=== PATIENT | male | born 1950 | race Caucasian/White ===

== ENCOUNTER 2023-05-04 14:47 | Observation (INO) | payer MEDICARE ==
[~2023-05-04] VITALS: Ht 182.9 cm; Wt 79.7 kg
[~2023-05-04 14:47] MED LIST: ALLP100T; DIAZ-345; HYDR1TAB; NAPR250T34; SERT25TA
[2023-05-04] MEDS ORDERED: NS IV 1000 ML 1,000 ML IV STA (15:12)
--- NOTE | 2023-05-04 15:15 | ED Cough/URI ---
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 Symptoms started about 8 days ago. Reports body aches chills weakness fatigue. Has not been able to eat as much. Has been vomiting nearly every day except today. Patient reports 1 loose stool. Reports a mild wet productive cough without any shortness of breath at this time. Did have shortness of breath earlier this week with a cough. Concern for pneumonia. Was seen at a local clinic sent to the ED secondary to elevated blood pressure. Has not been able to take his verapamil and clonidine secondary to the vomiting. Does have a history of gout and RA which he has not been able to take his medication for as well. Does report joint pain but states this is fairly chronic. Denies history of coronary artery disease, CHF, COPD or asthma. Denies any recent travels or surgeries. Denies of any known fever rash sore throat ear pain, pain with urina tion current abdominal pain. Allergies and Home Medications Allergies Coded Allergies: No Known Allergies (Unverified Allergy, Mild, 06/10/09) Patient Home Medication List Home Medication List Reviewed: Yes Allopurinol (Zyloprim) 100 Mg Tab, (Reported) Entered as Reported by: JASIEL ACOTSA on 06/10/09609 Diazepam (Valium 5 Mg Tab) 5 Mg Tablet, (Reported) Entered as Reported by: JASIEL ACOSTA on 06/10/09608 Hydrocodone Bit/Acetaminophen (Vicodin 5-500 Tablet) 1 Each Tablet, (Reported) Entered as Reported by: JASIEL ACOSTA on 06/10/09606 Naproxen (Naprosyn) 250 Mg Tablet, (Reported) Entered as Reported by: JASIEL ACOSTA on 06/10/09608 Sertraline Hcl (Zoloft) 25 Mg Tablet, (Reported) Entered as Reported by: JASIEL ACOSTA on 06/10/09 0608 Review of Systems Review of Systems Constitutional: chills; No diaphoresis; malaise, weakness EENTM: No ear pain, No blurred vision, No double vision Respiratory: cough; No short of breath Cardiovascular: No chest pain Gastrointestinal: No abdominal pain, No diarrhea; nausea, vomiting Genitourinary: No decreased output, No discharge, No dysuria, No frequency Musculoskeletal: No back pain, No joint pain Skin: No change in color, No change in hair/nails All Other Systems Reviewed Negative Unless Noted: Yes Past Bfwbxvy-Odmvxd-Ftavuy Hx Past Medical History Reproductive Disorders: No Physical Exam Vital Signs - First Documented 05/04/23 15:06 Temp 37.1 Pulse 95 Resp 20 B/P (MAP) 166/120 (135) Pulse Ox 99 O2 Delivery Room Air Capillary Refill : Less Than 3 Seconds Height: '" Weight: lbs. oz. kg; 21.00 BMI Method: General Appearance: WD/WN, no apparent distress Eyes: Bilateral Eye Normal Inspection, Bilateral Eye PERRL, Bilateral Eye EOMI HEENT: PERRL/EOMI, normal ENT inspection, TMs normal, pharynx normal Neck: non-tender, full range of motion Respiratory: chest non-tender, normal breath sounds, no respiratory distress, no accessory muscle use, wheezing (Right-sided lower lung) Cardiovascular: regular rate, rhythm, no edema, no gallop, no JVD Gastrointestinal: normal bowel sounds, non tender, soft Extremities: normal range of motion, non-tender, no pedal edema, other (Left posterior elbow tenderness with bursitis) Neurologic/Psychiatric: 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 as tested, no motor/sensory deficits, alert, oriented x 3 Skin: normal color, warm/dry Focused Exam Lactate Level 05/04/23 16:50: Lactic Acid Level 0.96 Lactic Acid Level Laboratory Tests Test 05/04/23 16:50 Lactic Acid Level 0.96 MMOL/L (0.50-2.00) Progress/Results/Core Measures Suspected Sepsis SIRS Temperature: Pulse: 95 Respiratory Rate: 20 Laboratory Tests 05/04/23 15:15: White Blood Count 12.5H Blood Pressure 166 /120 Mean: 135 05/04/23 16:50: Lactic Acid Level 0.96 Laboratory Tests 05/04/23 15:15: Creatinine 2.89H, Platelet Count 109L, Total Bilirubin 2.3H Results/Orders Lab Results Laboratory Tests Test 05/04/23 15:10 05/04/23 15:15 05/04/23 16:50 Range/Units Influenza Type A (RT-PCR) Not Detected Not Detecte Influenza Type B (RT-PCR) Not Detected Not Detecte SARS-CoV-2 RNA (RT-PCR) Not Detected Not Detecte White Blood Count 12.5 H 4.3-11.0 10^3/uL Red Blood Count 4.90 4.30-5.52 10^6/uL Hemoglobin 15.1 13.3-17.7 g/dL Hematocrit 43 40-54 % Mean Corpuscular Volume 88 80-99 fL Mean Corpuscular Hemoglobin 31 25-34 pg Mean Corpuscular Hemoglobin Concent 35 32-36 g/dL Red Cell Distribution Width 14.7 H 10.0-14.5 % Platelet Count 109 L 130-400 10^3/uL Mean Platelet Volume 10.8 9.0-12.2 fL Immature Granulocyte % (Auto) 0 % Neutrophils (%) (Auto) 81 H 42-75 % Lymphocytes (%) (Auto) 13 12-44 % Monocytes (%) (Auto) 7 0-12 % Eosinophils (%) (Auto) 0 0-10 % Basophils (%) (Auto) 0 0-10 % Neutrophils # (Auto) 10.1 H 1.8-7.8 10^3/uL Lymphocytes # (Auto) 1.6 1.0-4.0 10^3/uL Monocytes # (Auto) 0.8 0.0-1.0 10^3/uL Eosinophils # (Auto) 0.0 0.0-0.3 10^3/uL Basophils # (Auto) 0.0 0.0-0.1 10^3/uL Immature Granulocyte # (Auto) 0.0 0.0-0.1 10^3/uL Percent Immature Platelet Fraction 4.9 0.0-7.6 % Sodium Level 133 L 135-145 MMOL/L Potassium Level 3.4 L 3.6-5.0 MMOL/L Chloride Level 96 L 98-107 MMOL/L Carbon Dioxide Level 21 21-32 MMOL/L Anion Gap 16 H 5-14 MMOL/L Blood Urea Nitrogen 36 H 7-18 MG/DL Creatinine 2.89 H 0.60-1.30 MG/DL Estimat Glomerular Filtration Rate 23 BUN/Creatinine Ratio 12 Glucose Level 165 H 70-105 MG/DL Calcium Level 10.4 H 8.5-10.1 MG/DL Corrected Calcium 8.5-10.1 MG/DL Magnesium Level 1.8 1.6-2.4 MG/DL Total Bilirubin 2.3 H 0.1-1.0 MG/DL Aspartate Amino Transf (AST/SGOT) 48 H 5-34 U/L Alanine Aminotransferase (ALT/SGPT) 33 0-55 U/L Alkaline Phosphatase 132 40-136 U/L C-Reactive Protein High Sensitivity 3.20 H 0.00-0.50 MG/DL Total Protein 8.5 H 6.4-8.2 GM/DL Albumin 4.9 H 3.2-4.5 GM/DL Lipase 138 H 8-78 U/L Lactic Acid Level 0.96 0.50-2.00 MMOL/L My Orders Orders - SARI PARRA PA Cbc And Automated Diff (05/04/23 15:12) Comprehensive Metabolic Panel (05/04/23 15:12) Lipase (05/04/23 15:12) Magnesium (05/04/23 15:12) Hs C Reactive Protein (05/04/23 15:12) Chest 1 View, Ap/Pa Only (05/04/23 15:12) Ns Iv 1000 Ml (Ns Iv 1000 Ml) (05/04/23 15:12) Clonidine Tablet (Clonidine Tablet) (05/04/23 15:30) Urinalysis (05/04/23 16:19) Influenza A And B By Pcr (05/04/23 16:26) Blood Culture (05/04/23 16:32) Lactic Acid Analyzer (05/04/23 16:32) Covid 19 Inhouse Test (05/04/23 16:32) Azithromycin Injection (Azithromycin Inj (05/04/23 16:34) Ceftriaxone Iv/Im (Ceftriaxone Iv/Im) (05/04/23 16:34) Ed Admission (Communication) (05/04/23 16:34) Blood Culture (05/04/23 16:42) Medications Given in ED Current Medications Medications Dose Ordered Sig/Dilia Route Start Time Stop Time Status Last Admin Dose Admin Clonidine HCl 0.1 mg ONCE ONCE PO 05/04/23 15:30 05/04/23 15:31 DC 05/04/23 15:34 0.1 MG Vital Signs/I&O 05/04/23 15:06 Temp 37.1 Pulse 95 Resp 20 B/P (MAP) 166/120 (135) Pulse Ox 99 O2 Delivery Room Air Capillary Refill : Less Than 3 Seconds Blood Pressure Mean: 135 Departure Communication (PCP) Reviewed previous ER visits, H&P, lab testing. History of gout, hypertension, RA. Has not been able to take his blood pressure medication or any medication secondary to the continuous vomiting over the past 8 days. Reports cough some mild congestion but denies of any current chest pain or shortness of breath or abdominal pain. Patient was afebrile. Heart rate right above 90. He was hypertensive. Denies history of COPD or asthma. Oxygen 99% on room air. Patient does have some subtle wheezing to the right lung. No retractions. States he has not vomited today. Concerned that patient is dehydrated appears dry. Generalized lab work was ordered. CBC showed slight elevated white blood count of 12. Chemistry showed sodium 133, potassium 3.4, chloride 96, creatinine 2.89 GFR 23. States his baseline creatinine is 1.6. No recent comparison. Total bilirubin 2.3 AST 48 CRP 3.20 lipase 138. Soft abdomen without any specific tenderness. Imaging was held. Chest x-ray was obtained which did not show any pneumonia, pneumothorax, pleural effusion. Patient did receive a liter of fluid. Did receive his clonidine as he was able to tolerate p.o. fluids. Patient does appear dry. Concern for the change in kidney function. I am concerned that patient does have pneumonia. Patient was started on Rocephin and azithromycin. Patient was discussed with Dr. Rosario hospitalist agreed accept patient for IV fluids and IV antibiotics Impression Primary Impression: Acute kidney injury superimposed on chronic kidney disease Additional Impression: Pneumonia Disposition: ADMITTED INPATIENT Condition: Stable Admissions Decision to Admit Reason: Admit from ER (General) Decision to Admit/Date: May 04, 2023 Time/Decision to Admit Time: 16:40 Departure-Patient Inst. Referrals: NO,LOCAL PHYSICIAN (PCP/Family) Primary Care Physician SARI PARRA May 04, 2023 15:15
[2023-05-04] MEDS ORDERED: cloNIDine 0.1 MG TABLET PO ONE (15:30)
[2023-05-04 15:31] LABS: EOSINOPHILS % (AUTO) 0 % (0-10); HEMOGLOBIN 15.1 g/dL (13.3-17.7); MONOCYTES # (AUTO) 0.8 10^3/uL (0.0-1.0); MONOCYTES % (AUTO) 7 % (0-12)
[2023-05-04 15:33] LABS: BASOPHILS % (AUTO) 0 % (0-10); HEMATOCRIT 43 % (40-54); LYMPHOCYTES # (AUTO) 1.6 10^3/uL (1.0-4.0); LYMPHOCYTES % (AUTO) 13 % (12-44); MEAN CORPUSCULAR HEMOGLOBIN 31 pg (25-34); MEAN CORPUSCULAR HGB CONC 35 g/dL (32-36); MEAN CORPUSCULAR VOLUME 88 fL (80-99); MEAN PLATELET VOLUME 10.8 fL (9.0-12.2); NEUTROPHILS # (AUTO) 10.1 10^3/uL (1.8-7.8); NEUTROPHILS % (AUTO) 81 % (42-75); PLATELET COUNT 109 10^3/uL (130-400); WHITE BLOOD COUNT 12.5 10^3/uL (4.3-11.0)
--- NOTE | 2023-05-04 15:43 | Diagnostic Imaging Report ---
CLINICAL INDICATION: Patient with flu symptoms for about eight days. Patient with body aches. EXAM: Chest x-ray, PA and lateral views. COMPARISON: None. FINDINGS: Lungs/pleura: Lungs are clear. There is no pneumothorax. There is no pleural effusion. Mediastinum: Unremarkable. Pulmonary vasculature: Unremarkable. Heart: Unremarkable. Bones/extrathoracic soft tissue: Unremarkable. IMPRESSION: There is no radiographic evidence of acute cardiopulmonary process. Dictated by: Dictated on workstation # [id number]
[2023-05-04 15:46] LABS: ALBUMIN 4.9 GM/DL (3.2-4.5); CHLORIDE 96 MMOL/L (98-107); POTASSIUM 3.4 MMOL/L (3.6-5.0); SODIUM 133 MMOL/L (135-145)
[2023-05-04 15:48] LABS: CALCIUM 10.4 MG/DL (8.5-10.1)
[2023-05-04 15:49] LABS: GLUCOSE 165 MG/DL (70-105); TOTAL PROTEIN 8.5 GM/DL (6.4-8.2)
[2023-05-04 15:50] LABS: CARBON DIOXIDE 21 MMOL/L (21-32)
[2023-05-04 15:51] LABS: BILIRUBIN,TOTAL 2.3 MG/DL (0.1-1.0)
[2023-05-04 15:52] LABS: ALKALINE PHOSPHATASE 132 U/L (40-136)
[2023-05-04 15:53] LABS: CREATININE SERUM 2.89 MG/DL (0.60-1.30); GFR ESTIMATED 23
[2023-05-04 15:54] LABS: BUN/CREATININE RATIO 12
[2023-05-04 15:55] LABS: ALANINE AMINOTRANSFERASE 33 U/L (0-55)
[2023-05-04 15:56] LABS: MAGNESIUM 1.8 MG/DL (1.6-2.4)
[2023-05-04 15:57] LABS: LIPASE 138 U/L (8-78)
[2023-05-04] MEDS ORDERED: cefTRIAXone IV/IM 1,000 MG in NS (IVPB) 50 ML 50 ML IV STA (16:34)
[2023-05-04] MEDS ORDERED: AZITHROMYCIN INJECTION 500 MG in NS (IVPB) 250 ML 250 ML IV STA (16:34)
[2023-05-04 19:15] VITALS: BP 179/83
[2023-05-04] MEDS ORDERED: MILK OF MAGNESIA 400 MG/5 ML 30 ML UDC PO PRN (19:45)
[2023-05-04] MEDS ORDERED: ONDANSETRON INJECTION 4 MG/2 ML (SDV) IV PRN (19:45)
[2023-05-04] MEDS ORDERED: BISACODYL 10 MG SUPPOSITORY PR PRN (19:45)
[2023-05-04] MEDS ORDERED: CALCIUM CARBONATE 500 MG CHEW TABLET PO PRN (19:45)
[2023-05-04] MEDS ORDERED: cefTRIAXone IV/IM 1,000 MG in NS (IVPB) 50 ML 50 ML IV SCH (19:45)
[2023-05-04] MEDS ORDERED: ANTACID SUSPENSION 30 ML UDC PO PRN (19:45)
[2023-05-04 20:11] VITALS: BP 179/83
[2023-05-04] MEDS ORDERED: RT-ALBUTEROL SULF 2.5 MG/3 ML PRE-MIX VIAL INH PRN (20:15)
[2023-05-04] MEDS ORDERED: OLME40TA18 PO (20:35)
[2023-05-04] MEDS ORDERED: ASPI-999 PO (20:35)
[2023-05-04] MEDS ORDERED: FLUO10CA29 PO (20:35)
[2023-05-04] MEDS ORDERED: HYDR-3781 PO (20:35)
[2023-05-04] MEDS ORDERED: BUPR1FIL5 SL (20:35)
[2023-05-04] MEDS ORDERED: HYDR-700 PO (20:35)
[2023-05-04] MEDS ORDERED: VERA80TA4 PO (20:35)
[2023-05-04] MEDS ORDERED: BETA15CR14 TP (20:35)
[2023-05-04] MEDS ORDERED: CLN.1T PO (20:35)
[2023-05-04] MEDS ORDERED: VERAPAMIL 80 MG (ISOPTIN) TAB PO PRN (20:45)
[2023-05-04] MEDS: MELATONIN 3 MG TABLET PO PRN (22:00)
[2023-05-04] MEDS: LOSARTAN 100 MG TABLET PO SCH (22:00)
[2023-05-04] MEDS: FLUoxetine 10 MG CAPSULE/TABLET PO SCH (22:00)
[2023-05-04] MEDS: NS IV 1000 ML 1,000 ML IV SCH (22:00)
[2023-05-04] MEDS: clonazePAM 0.5 MG TABLET PO PRN (22:00)
[2023-05-04] MEDS: cloNIDine 0.1 MG TABLET PO SCH (22:00)
[2023-05-04 23:37] VITALS: BP 155/88
[2023-05-05 03:53] VITALS: BP 158/87
[2023-05-05 06:05] LABS: MEAN PLATELET VOLUME 10.4 fL (9.0-12.2); WHITE BLOOD COUNT 6.2 10^3/uL (4.3-11.0)
[2023-05-05 06:13] LABS: POTASSIUM 3.4 MMOL/L (3.6-5.0)
[2023-05-05 06:14] LABS: CALCIUM 8.3 MG/DL (8.5-10.1)
[2023-05-05 06:19] LABS: CREATININE SERUM 2.6 MG/DL (0.60-1.30)
[2023-05-05] MEDS: NS IV 1000 ML 1,000 ML IV SCH ×4 (06:57→22:33)
--- NOTE | 2023-05-05 08:07 | Physical Therapy Evaluation ---
PT Evaluation-General Medical Diagnosis Admission Date May 04, 2023 at 17:43 Medical Diagnosis: SARAH Onset Date: May 04, 2023 Therapy Diagnosis Therapy Diagnosis: debility Precautions Precautions/Isolations: Standard Precautions Weight Bear Status Right Lower Extremity: Right Weight Bearing/Tolerated Left Lower Extremity: Left Weight Bearing/Tolerated Referral Physician: Abraham Reason for Referral: Evaluation/Treatment Medical History Pertinent Medical History: Rheumatoid Arthritis Current History ER secondary to flu like symptoms x 8 days Reviewed History: Yes Social History Home: Single Level Entry Into Home: Stairs With Railing PT Steps Into Home: 5 Prior Prior Level of Function SCALE: Activities may be completed with or without assistive devices. 8-Grdytinduu-rkgufny completes the activity by him/herself with no assistance from a helper. 5-Set-up or Clean-up Assistance-helper sets up or cleans up; patient completes activity. Solo assists only prior to or following the activity. 4-Supervision or Touching Assistance-helper provides verbal cues and/or touching/steadying and/or contact guard assistance as patient completes activity. Assistance may be provided throughout the activity or intermittently. 3-Partial/Moderate Assistance-helper does LESS THAN HALF the effort. Solo lifts, holds or supports trunk or limbs, but provides less than half the effort. 2-Substantial/Maximal Assistance-helper does MORE THAN HALF the effort. Solo lifts or holds trunk or limbs and provides more than half the effort. 0-Waooahbam-hyymnt does ALL the effort. Patient does none of the effort to complete the activity. Or, the assistance of 2 or more helpers is required for the patient to complete the activity. If activity was not attempted, code reason: 7-Patient Refused. 9-Not Applicable-not attempted and the patient did not perform the activity before the current illness, exacerbation or injury. 10-Not Attempted due to Environmental Limitations-(lack of equipment, weather restraints, etc.). 88-Not Attempted due to Medical Conditions or Safety Concerns. Bed Mobility: 6 Transfers (B,C,W/C): 6 Gait: 6 Stairs: 6 Indoor Mobility (Ambulation): Independent Stairs: Independent Prior Devices Use: None PT Evaluation-Current Subjective Patient reports he is feeling so much better. Agrees to PT. Objective Patient Orientation: Normal For Age Attachments: IV ROM/Strength ROM Lower Extremities bilateral LE WFL Strength Lower Extremities 4-/5 grossly bilateral LE all planes Integumentary/Posture Bowel Incontinence: No Bladder Incontinence: No Posture WFL Neuromuscular (Tone, Coordination, Reflexes) grossly intact Sensory Vision: Functional Hearing: Functional Transfers Lying to Sitting/Side of Bed(Q: 6 Sit to Stand (QC): 6 Chair/Jnu-wu-Sneox Xfer(QC): 6 Gait Mode of Locomotion: Walk Anticipated Mode of Locomotion: Walk Walk 10 feet (QC): 6 Walk 50 ft with 2 Turns(QC): 6 Walk 150 ft (QC): 6 Distance: 450' Gait Assistive Device: None Comments/Gait Description safe and functional with no deviation Balance Sitting Static: Normal Sitting Dynamic: Normal Standing Static: Normal Standing Dynamic: Normal Picking up an Object (QC): 6 Assessment/Needs Patient is currently at independent [facility] with all gross motor skills safely and does not require skilled PT intervention at this time. Rehab Potential: Fair PT Plan Treatment/Plan Treatment Plan: Discontinue PT Treatment Duration: May 05, 2023 Frequency: 1 time per week Estimated Hrs Per Day: .25 hour per day Patient and/or Family Agrees t: Yes Time Time In: 747 Time Out: 800 DATE: May 05, 2023 Total Billed Treatment Time: 13 Total Billed Treatment [facility] min ALESHA IQBAL PT May 05, 2023 08:07
[2023-05-05] MEDS: LOSARTAN 100 MG TABLET PO SCH (08:36)
[2023-05-05] MEDS: ACETAMINOPHEN 500 MG TABLET PO PRN ×2 (08:36→16:31)
[2023-05-05] MEDS: cloNIDine 0.1 MG TABLET PO SCH ×2 (08:36→21:18)
[2023-05-05] MEDS: FLUoxetine 10 MG CAPSULE/TABLET PO SCH (08:36)
[2023-05-05 08:54] VITALS: BP 161/87
[2023-05-05] MEDS: clonazePAM 0.5 MG TABLET PO PRN (09:27)
[2023-05-05 12:17] VITALS: BP 169/85
--- NOTE | 2023-05-05 13:31 | History & Physical-Hospitalist ---
REMI BRADFORD 05/05/23 1331: History of Present Illness HPI/Chief Complaint 72M w/ a PMH of chronic alcoholism and a 60lb weight loss in the past year due to recurrent infections presents thinking he has pneumonia. He says his was sick 2 weeks ago and recovered. Last Monday, he started getting sick with body aches, fever, N/V, and a dry cough. The fever persisted for 4-5 days. The dry cough ended 2 days ago. The N/V also ended 2 days ago, but he reports having coffee ground emesis for the first 3 days of his illness. Because he has been recovering, he was going to not come in, but he saw a doctor two days ago who told him he should come here due to what he told her, and his forced him to come in yesterday. While in the room with the patient, he had an episode of temporary incapacitation suspected of SVT vs. TIA vs. seizure. He claims he has not slept well in a week and was just tired, but he was suddenly minimally responsive, only waving his arm when I asked if he was okay, seeming out of it; I went to get help; I came back, and he was back to normal as if nothing happened. We took his vitals right then, and his pulse was in the 70s but his BP was 190/91. He later admitted it was probably more than just being tired. Source: patient Date Seen 05/05/23 Attending Physician No,Local Physician PCP Admitting Physician: Kam Rosario MD Attending Physician: Kam Rosario MD Referring Physician Date of Admission May 04, 2023 at 17:43 Home Medications & Allergies Home Medications Reviewed patient Home Medication Reconciliation performed by pharmacy medication reconciliations commercial tire service technician and/or nursing. Patients Allergies have been reviewed. Allergies Allergies Coded Allergies NKANo Known Allergies (Unverified Allergy, Mild, 06/10/09) Past Qbkrklx-Npollt-Kgjzpu Hx Patient Social History Marrital Status: Tobacco Use?: No Smoking Status: Never a Smoker Use of E-Cig and/or Vaping dev: No Substance use?: No Substance type: Marijuana Alcohol Use?: No (says he drank daily from [age] y/o) Pt feels they are or have been: No Immunizations Up To Date Second COVID19 Vaccination Victorino: YES Current Status Advance Directives: No Communicates: Verbally Primary Language: Scottish Preferred Spoken Language: Scottish Is interpretation needed?: No Implanted or Applied Medical D: None Past Medical History Surgeries: Gallbladder (says he has had a surgery for gallstones, did not know if it was a orwdy), Orthopedic (back) Asthma Rheumatoid Arthritis, Gout Review of Systems Constitutional: No chills, No fever EENTM: No blurred vision, No double vision Respiratory: No cough, No short of breath Cardiovascular: No chest pain, No palpitations Gastrointestinal: No abdominal pain; diarrhea (yesterday); No hematemesis, No melena, No nausea, No vomiting Genitourinary: No dysuria, No frequency, No hematuria Musculoskeletal: back pain, gout, joint pain Skin: lesions (bruising on arms), lumps (gout, RA) Psychiatric/Neurological: Anxiety, Depressed Physical Exam Physical Exam Vital Signs Vital Signs - First Documented 05/04/23 05/04/23 15:06 20:11 Temp 37.1 Pulse 95 Resp 20 B/P (MAP) 166/120 (135) Pulse Ox 99 O2 Delivery Room Air FiO2 21 Capillary Refill : Less Than 3 Seconds Height, Weight, BMI Height: '" Weight: lbs. oz. kg; 21.94 BMI Method: General Appearance: No Apparent Distress, WD/WN HEENT: PERRL/EOMI; No Scleral Icterus (L), No Scleral Icterus (R) Neck: Normal Inspection, Non Tender; No JVD Respiratory: Chest Non Tender, Lungs Clear, Normal Breath Sounds, No Accessory Muscle Use, No Respiratory Distress Cardiovascular: Regular Rate, Rhythm, No Edema, No Gallop, No JVD, Other (bounding carotid pulses, BP 190/91 in room) Gastrointestinal: Non Tender, Soft; No Distended, No Guarding Extremity: Non Tender, No Pedal Edema Neurologic/Psychiatric: Alert, Oriented x3 Skin: Warm/Dry, Ecchymosis (arms), Other (gout, RA nodules big toes and elbows) Results Results/Procedures Labs Laboratory Tests 05/04/23 15:15 05/05/23 05:30 Patient resulted labs reviewed. Assessment/Plan Assessment and Plan Pneumonia with sepsis Sepsis resolved Rocephin Azithromycin SVT vs. TIA vs. seizure 24h telemetry Acute on Stage 4 CKD IV fluids Coffee ground emesis (04/24 - 04/26) EGD outpt HTN Clonidine Hold Losartan due to kidney issues Anemia Monitor, likely dilutional Thrombocytopenia (dilutional vs. consumption vs. alcoholism) Monitor Gout Allopurinol RA DVT ppx Lovenox Anxiety / depression Fluoxetine Normal diet KAM ROSARIO MD 05/05/23 1701: History of Present Illness Time Seen by a Provider: 11:00 Physical Exam Physical Exam General Appearance: No Apparent Distress, Chronically ill Respiratory: Lungs Clear, No Accessory Muscle Use, No Respiratory Distress Cardiovascular: Regular Rate, Rhythm, No JVD Gastrointestinal: Normal Bowel Sounds, Non Tender, Soft Extremity: No Pedal Edema Neurologic/Psychiatric: Alert, Oriented x3 Results Results/Procedures Imaging: Reviewed Imaging Report Imaging [facility], [place] NAME: SADIE PARIKH [facility] REC#: [id number] PT STATUS: ADM Marvin : 1950 PHYSICIAN: SARI PARRA ADMIT DATE: 05/04/23 Signed Date of Exam:05/04/23 CHEST 1 VIEW, AP/PA ONLY CLINICAL INDICATION: Patient with flu symptoms for about eight days. Patient with body aches. EXAM: Chest x-ray, PA and lateral views. COMPARISON: None. FINDINGS: Lungs/pleura: Lungs are clear. There is no pneumothorax. There is no pleural effusion. Mediastinum: Unremarkable. Pulmonary vasculature: Unremarkable. Heart: Unremarkable. Bones/extrathoracic soft tissue: Unremarkable. IMPRESSION: There is no radiographic evidence of acute cardiopulmonary process. Dictated by: Dictated on workstation # [id number] Dict: 05/04/23 1537 Trans: 05/04/231919 [id number] Interpreted by: MANI STOCK MD Electronically signed by: MANI STOCK MD 05/04/231919 Assessment/Plan Admission Diagnosis Sepsis due to PNA Admission Status: Observation Assessment and Plan Pt admitted to the hospital due to sepsis due to pneumonia. Will continue IV abx. Patient had an episode this morning where he fell asleep but felt like it was "more than falling asleep.' Witnessed by medical student and resolved in seconds. Will add telemetry and monitor overnight. states that is very common for him as he often just falls asleep midsentence during the day and he has been very tired from not sleeping much the past couple of days. Will continue IVF and monitor renal function. I attempted to contact his PCP to get baseline labs but unable to connect today. Hopefully home tomorrow. states he does not have a PCP since Dr Loving and they are trying to establish with one. List given of local PCPs. Diagnosis/Problems Diagnosis/Problems (1) Sepsis (2) Acute kidney injury superimposed on chronic kidney disease (3) Pneumonia Supervisory-Addendum Brief Verification & Attestation Participated in pt care: history, MDM, physical Personally performed: exam, history, MDM, supervision of care Care discussed with: Medical Student Procedures: n/a Results interpretation: Verified all documentation Verification and Attestation of Medical Student E/M Service A medical student performed and documented this service in my presence. I reviewed and verified all information documented by the medical student and made modifications to such information, when appropriate. I personally performed the physical exam and medical decision making. Kam Rosario, May 05, 2023,17:03 REMI BRADFORD May 05, 2023 13:31 KAM ROSARIO MD May 05, 2023 17:01
[2023-05-05 16:00] VITALS: BP 169/85
[2023-05-05] MEDS ORDERED: AZITHROMYCIN INJECTION 500 MG in NS (IVPB) 250 ML 250 ML IV SCH (17:00)
[2023-05-05] MEDS ORDERED: cefTRIAXone IV/IM 1,000 MG in NS (IVPB) 50 ML 50 ML IV SCH (17:00)
[2023-05-05 19:25] VITALS: BP 164/77
[2023-05-05] MEDS ORDERED: AZITHROMYCIN 250 MG TABLET PO SCH (21:00)
[2023-05-05] MEDS: MELATONIN 3 MG TABLET PO PRN (22:32)
[2023-05-05] MEDS: HYDROcodone/ACETAMINOPHEN 5 MG/325 MG TABLET PO PRN (22:32)
[2023-05-05 23:14] VITALS: BP 172/74
[2023-05-06] MEDS: ACETAMINOPHEN 500 MG TABLET PO PRN (01:23)
[2023-05-06] MEDS: clonazePAM 0.5 MG TABLET PO PRN (01:23)
[2023-05-06 03:41] VITALS: BP 158/72
[2023-05-06 05:46] LABS: MEAN PLATELET VOLUME 10.7 fL (9.0-12.2)
[2023-05-06 05:48] LABS: HEMOGLOBIN 11.1 g/dL (13.3-17.7); WHITE BLOOD COUNT 4.2 10^3/uL (4.3-11.0)
[2023-05-06 05:59] LABS: POTASSIUM 3.4 MMOL/L (3.6-5.0)
[2023-05-06 06:00] LABS: CALCIUM 7.9 MG/DL (8.5-10.1)
[2023-05-06] MEDS: NS IV 1000 ML 1,000 ML IV SCH (06:02)
[2023-05-06 06:04] LABS: CREATININE SERUM 2.39 MG/DL (0.60-1.30)
[2023-05-06 07:44] VITALS: BP 187/89
[2023-05-06] MEDS: FLUoxetine 10 MG CAPSULE/TABLET PO SCH (08:26)
[2023-05-06] MEDS: cloNIDine 0.1 MG TABLET PO SCH (08:26)
[2023-05-06] MEDS: HYDROcodone/ACETAMINOPHEN 5 MG/325 MG TABLET PO PRN (08:27)
[2023-05-06] MEDS ORDERED: amLODIPine 5 MG TABLET PO SCH (09:00)
[2023-05-06] MEDS ORDERED: OLME40TA18 PO (09:40)
[2023-05-06] MEDS ORDERED: ALLO100T PO (09:40)
[2023-05-06] MEDS ORDERED: ACHD5005 PO (09:40)
[2023-05-06] MEDS ORDERED: VERA80TA4 PO (09:40)
[2023-05-06] MEDS ORDERED: CEPH500T PO (09:40)
[2023-05-06] MEDS ORDERED: AZIT250T12 PO (09:40)
--- NOTE | 2023-05-06 09:45 | Discharge Inst-Simple/Standard ---
Discharge Inst-Standard Discharge Medications New, Converted or Re-Newed RX: Transmitted to Pharmacy Patient Instructions/Follow Up Plan of Care/Instructions/FU: Please continue to take your medications as written. Please follow up with your primary care doctor to follow up this hospital stay. Activity as Tolerated: Yes Discharge Diet: Low Sodium Diet Return to The Hospital For: Chest pain, shortness of breath, fever, weakness, if you feel you are getting worse. KAM UGARTE MD May 06, 2023 09:45
--- NOTE | 2023-05-06 10:56 | Discharge Summary ---
Diagnosis/Chief Complaint Date of Admission May 04, 2023 at 17:43 Date of Discharge Discharge Date: May 06, 2023 Admission Diagnosis Sepsis due to PNA Primary Care No,Local Physician Discharge Diagnosis (1) Sepsis (2) Acute kidney injury superimposed on chronic kidney disease (3) Pneumonia Discharge Summary Discharge Physical Exam Allergies: Coded Allergies: NKANo Known Allergies (Unverified Allergy, Mild, 06/10/09) Vitals & I&Os Vital Signs Date Time Temp Pulse Resp B/P (MAP) Pulse Ox O2 Delivery O2 Flow Rate FiO2 05/06/23 08:14 99 Room Air 0.00 05/06/23 07:44 36.5 61 17 187/89 (121) 05/04/23 20:11 21 General Appearance: No Apparent Distress, WD/WN HEENT: PERRL/EOMI; No Scleral Icterus (L), No Scleral Icterus (R) Respiratory: Lungs Clear, Normal Breath Sounds, No Accessory Muscle Use, No Respiratory Distress Cardiovascular: Regular Rate, Rhythm, No Edema, No Gallop, No JVD, No Murmur Gastrointestinal: Non Tender, Soft; No Distended, No Guarding Extremity: Normal Inspection, Non Tender, No Pedal Edema Skin: Normal Color, Warm/Dry Neurologic/Psychiatric: Alert, Oriented x3 Hospital Course Virgil Alvarado is a 72M who presented with pneumonia w/ sepsis, who had 3 days of coffee ground emesis last week, and who was improving for two days before coming here. He also had an episode of minimal responsiveness for a few seconds while visiting him in the room, after which he was completely back to normal, and for which he was found to have a BP of 191/90, and he was subsequently put on 24h telemetry afterwards, and no abnormalities were found. His HTN, gout, and RA were managed during his stay. While here, he was treated with Rocephin and Azithromycin for his pneumonia. His sepsis resolved. He is feeling much better today and is ready to go home. He will be sent home w/ a rx for Keflex and Azithromycin. He should get an EGD outpt d/t the coffee ground emesis he reports having from 04/24-04/26. Labs (last 24 hrs) Laboratory Tests 05/06/23 05:28: White Blood Count 4.2L, Red Blood Count 3.61L, Hemoglobin 11.1L, Hematocrit 33L, Mean Corpuscular Volume 91, Mean Corpuscular Hemoglobin 31, Mean Corpuscular Hemoglobin Concent 34, Red Cell Distribution Width 14.6H, Platelet Count 87L, Mean Platelet Volume 10.7, Percent Immature Platelet Fraction 4.8, Sodium Level 139, Potassium Level 3.4L, Chloride Level 112H, Carbon Dioxide Level 18L, Anion Gap 9, Blood Urea Nitrogen 32H, Creatinine 2.39H, Estimat Glomerular Filtration Rate 28, BUN/Creatinine Ratio 13, Glucose Level 99, Calcium Level 7.9L Microbiology 05/04/23 Blood Culture - Preliminary, Resulted Patient resulted labs reviewed. Pending Labs Laboratory Tests 05/06/23 05:28: White Blood Count 4.2, Red Blood Count 3.61, Hemoglobin 11.1, Hematocrit 33, Mean Corpuscular Volume 91, Mean Corpuscular Hemoglobin 31, Mean Corpuscular Hemoglobin Concent 34, Red Cell Distribution Width 14.6, Platelet Count 87, Mean Platelet Volume 10.7, Percent Immature Platelet Fraction 4.8, Sodium Level 139, Potassium Level 3.4, Chloride Level 112, Carbon Dioxide Level 18, Anion Gap 9, Blood Urea Nitrogen 32, Creatinine 2.39, Estimat Glomerular Filtration Rate 28, BUN/Creatinine Ratio 13, Glucose Level 99, Calcium Level 7.9 Imaging: Reviewed Imaging Report Discharge Home Medications: Active Scripts Active Allopurinol 100 Mg Tablet 100 Mg PO DAILY Cephalexin 500 Mg Tablet 500 Mg PO BID Hydrocodone-Acetamin 5-325 mg (Hydrocodone/Acetaminophen) 5 Mg-325 Mg Tablet 1 Ea PO Q4H PRN Azithromycin 250 Mg Tablet 250 Mg PO HS Verapamil HCl 80 Mg Tablet 80 Mg PO BID Olmesartan Medoxomil 40 Mg Tablet 40 Mg PO DAILY Reported Betamethasone Dp Aug 0.05% Crm (Betamethasone/Propylene Glyc) 0.05 % Cream..g. 15 Gm TP BID PRN Prozac (Fluoxetine HCl) 10 Mg Capsule 10 Mg PO DAILY Suboxone 4 mg-1 mg Sl Film (Buprenorphine HCl/Naloxone HCl) 4 Mg-1 Mg Film 1 Each SL TID 7 Days Aspirin 81 Mg Tab.chew 81 Mg PO DAILY Hydroxyzine Pamoate 25 Mg Capsule 25 Mg PO DAILY Clonidine HCl 0.1 Mg Tablet 0.1 Mg PO BID Hydroxyzine HCl 25 Mg Tablet 25 Mg PO PRN Instructions to patient/family Please see electronic discharge instructions given to patient. REMI BRADFORD May 06, 2023 10:56
[2023-05-06 11:00] VITALS: BP 187/89
== END 2023-05-06 09:46 | disposition home or self-care (01) ==
LOC: EDUNIT# 14:47 → ER 14:51 → UNDOADMOB 17:43 → 4TH 17:43 → UNDODISOB 05-06 11:50
PROVIDERS: ADMIT Family Medicine; ATTEND Family Medicine
DX: A41.9 Sepsis, unspecified organism (principal); J18.9 Pneumonia, unspecified organism; N17.9 Acute kidney failure, unspecified; N18.4 Chronic kidney disease, stage 4 (severe); I12.9 Hypertensive chronic kidney disease with stage 1 through stage 4 chronic kidney disease, or unspecified chronic kidney disease; D64.9 Anemia, unspecified; R11.10 Vomiting, unspecified; D69.6 Thrombocytopenia, unspecified; M10.9 Gout, unspecified
CPT/HCPCS: 71045; 80048 ×2; 80053; 83605; 83690; 83735; 85025; 85027 ×2; 86141; 87040; 87636; 94760; 96361 ×2; 96365; 96366; 96375; 97162; 99284; G0378; 36415

== ENCOUNTER 2023-05-22 04:40 | Inpatient (IN) | payer MEDICARE ==
[~2023-05-22] VITALS: Ht 182.9 cm; Wt 79.8 kg
[~2023-05-22 04:40] MED LIST changes: +ACHD5005 PO; +ALLO100T PO; +ASPI-999 PO; +AZIT250T12 PO; +BETA15CR14 TP; +BUPR1FIL5 SL; +CEPH500T PO; +CLN.1T PO; +FLUO10CA29 PO; +HYDR-3781 PO; +HYDR-700 PO; +OLME40TA18 PO; +VERA80TA4 PO
[2023-05-22] MEDS ORDERED: ASPIRIN 81 MG CHEWABLE TABLET PO ONE ×2 (05:00→05:45)
[2023-05-22] MEDS ORDERED: NITROGLYCERIN 0.4 MG SL TABLETS BTL 25'S SL PRN ×2 (05:00→09:00)
--- NOTE | 2023-05-22 05:01 | ED General ---
General Chief Complaint: Chest Pain Stated Complaint: CP Source of Information: Patient (EXTREMELY DIFFICULT HISTORIAN), Old Records, Spouse ( GIVES SOME INFORMATION) History of Present Illness Date Seen by Provider: May 22, 2023 Time Seen by Provider: 04:48 Initial Comments PT ARRIVES VIA POV FROM HOME PT WITH A MULTITUDE OF PAIN COMPLAINTS, ALL CHRONIC AND ARE NO DIFFERENT TODAY IN ANY WAY HE STATES "IT COMES AND GOES" PT HAS NOT TAKEN ANYTHING FOR PAIN , OTHER THAN 1 DOSE OF TYLENOL 8 HOURS AGO HE DID TAKE 2 ASPIRIN JUST PRIOR TO ARRIVAL PT STATES "MY CHEST, MY FEET, MY ARMS" HE IS NOT CURRENTLY HAVING CHEST PAIN PT WITH RHEUMATOID ARTHRITIS--HE IS NOT TAKING ANY MEDICATIONS FOR IT, AND HAS NOT SEEN A EXPERIMENTAL WORKER IN MANY YEARS HE HAD BEEN TAKING HYDROCODONE, BUT HAS NOT TAKEN ANY FOR 2 WEEKS STATES HE HAD BEEN TAKING NAPROSYN FOR PAIN, BUT STATES HE WAS TOLD NOT TO TAKE IT ANY MORE BECAUSE OF HIS KIDNEY FUNCTION--IS UNCLEAR HOW LONG IT HAS BEEN SINCE HE HAS TAKEN ANY NSAIDS. PT WAS HOSPITALIZED 05/04-05/06 FOR PNEUMONIA HE STATES HE HAS NOT HAD ANY HYDROCODONE SINCE [facility] HE STATES HE IS NOT ON ANY ANTIBIOTICS AT THIS TIME HE DENIES COUGH, DENIES FEVER--BUT STATES HE GETS HOT AND SWEATS AT TIMES BUT HE NEVER HAS A FEVER, DENIES SHORTNESS OF BREATH NO GI SYMPTOMS PT HAS HTN AND HAS BEEN PRESCRIBED VERAPAMIL AND CLONIDINE. HE ADMITS TO MISSING AN UNKNOWN NUMBER OF DOSES OF MEDICATIONS--CLAIMS HE TOOK MEDICATIONS LAST NIGHT HE STATES HE SAW DR. ARABELLA SIBLEY AT [facility] LAST MONDAY AND HAD LAB WORK DONE, BUT THOSE RESULTS ARE NOT KNOWN. HE STTES NO MEDICATIONS WERE PRESCRIBED AT THAT VISIT. STATES HE HAS "ASTHMA FROM ALLERGIES" BUT HAS NEVER BEEN ON AN INHALER OR ANY MEDICATION FOR ASTHMA OR RESPIRATORY PROBLEMS PT DENIES HISTORY OF SMOKING HE HAS LONG HISTORY OF ALCOHOLISM. PER OLD RECORDS. ON QUESTIONING PT TODAY, HE STATES "I WAS NEVER AN ALCOHOLIC--I ONLY DRANK 3 OR 4 BEERS" AND CLAIMS HE HAS NOT HAD ANY SINCE 2004 HE ADMITS TO [facility] USE PCP; [facility], DR. ARABELLA SIBLEY Allergies and Home Medications Allergies Coded Allergies: NKANo Known Allergies (Unverified Allergy, Mild, 06/10/09) Patient Home Medication List Allopurinol (Allopurinol) 100 Mg Tablet, 100 MG PO DAILY Prescribed by: KAM UGARTE on 05/06/23939 Aspirin (Aspirin) 81 Mg Tab.chew, 81 MG PO DAILY, (Reported) Entered as Reported by: Willy Lomax on 05/04/232034 Azithromycin (Azithromycin) 250 Mg Tablet, 250 MG PO HS Prescribed by: KAM UGARTE on 05/06/23939 Betamethasone/Propylene Glyc (Betamethasone Dp Aug 0.05% Crm) 0.05 % Cream..g., 15 GM TP BID PRN, (Reported) Entered as Reported by: Willy Lomax on 05/04/232034 Buprenorphine HCl/Naloxone HCl (Suboxone 4 mg-1 mg Sl Film) 4 Mg-1 Mg Film, 1 EACH SL TID, (Reported) Entered as Reported by: Willy Lomax on 05/04/232034 Cephalexin (Cephalexin) 500 Mg Tablet, 500 MG PO BID Prescribed by: KAM UGARTE on 05/06/23939 Clonidine HCl (Clonidine HCl) 0.1 Mg Tablet, 0.1 MG PO BID, (Reported) Entered as Reported by: Willy Lomax on 05/04/232034 Fluoxetine HCl (Prozac) 10 Mg Capsule, 10 MG PO DAILY, (Reported) Entered as Reported by: Willy Lomax on 05/04/232034 Hydrocodone/Acetaminophen (Hydrocodone-Acetamin 5-325 mg) 5 Mg-325 Mg Tablet, 1 EA PO Q4H PRN for PAIN-MODERATE (5-7) Prescribed by: KAM UGARTE on 05/06/23940 Hydroxyzine HCl (Hydroxyzine HCl) 25 Mg Tablet, 25 MG PO PRN, (Reported) Entered as Reported by: Willy Lomax on 05/04/232034 Hydroxyzine Pamoate (Hydroxyzine Pamoate) 25 Mg Capsule, 25 MG PO DAILY, (Reported) Entered as Reported by: Willy Lomax on 05/04/232034 Olmesartan Medoxomil (Olmesartan Medoxomil) 40 Mg Tablet, 40 MG PO DAILY Prescribed by: KAM UGARTE on 05/06/23939 Verapamil HCl (Verapamil HCl) 80 Mg Tablet, 80 MG PO BID Prescribed by: KAM UGARTE on 10/21/23 0940 Review of Systems Review of Systems Constitutional: see HPI, diaphoresis EENTM: no symptoms reported Respiratory: No cough, No short of breath, No wheezing Cardiovascular: see HPI, chest pain Gastrointestinal: no symptoms reported Genitourinary: no symptoms reported Musculoskeletal: see HPI Skin: no symptoms reported Psychiatric/Neurological: Anxiety Hematologic/Lymphatic: No Symptoms Reported Immunological/Allergic: no symptoms reported Past Yjxlbbh-Xeguna-Oadrdt Hx Patient Social History Tobacco Use?: No Substance use?: No Alcohol Use?: No Immunizations Up To Date Second COVID19 Vaccination Victorino: YES Past Medical History Surgery/Hospitalization HX: HTN, GOUT, RA, KIDNEY ISSUES Surgeries: Yes Gallbladder, Orthopedic Respiratory: Yes Asthma Cardiac: Yes Hypertension Neurological: No Reproductive Disorders: No Genitourinary: Yes Renal Failure Gastrointestinal: No Musculoskeletal: Yes Rheumatoid Arthritis, Gout Endocrine: No HEENT: No Cancer: No Psychosocial: Yes Anxiety Integumentary: No Blood Disorders: No Physical Exam Vital Signs Vital Signs - First Documented Capillary Refill : Height, Weight, BMI Height: '" Weight: lbs. oz. kg; 21.94 BMI Method: General Appearance: No Apparent Distress, Anxious, Thin HEENT: PERRL/EOMI, Normal ENT Inspection Neck: Normal Inspection Respiratory: Chest Non Tender, Normal Breath Sounds, No Accessory Muscle Use, No Respiratory Distress Cardiovascular: Regular Rate, Rhythm, No Edema, No JVD, No Murmur, Normal Peripheral Pulses Gastrointestinal: Non Tender, Soft Back: No CVA Tenderness Extremity: Normal Capillary Refill, Normal Range of Motion, Other (PT WITH LARGE GOUTY AND/OR RHEUMATOID NODULES TO ELBOWS. 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 Skin: Normal Color, Warm/Dry Progress/Results/Core Measures Suspected Sepsis SIRS Temperature: Pulse: Respiratory Rate: Laboratory Tests 05/22/23 04:55: White Blood Count 5.8 Blood Pressure / Mean: Laboratory Tests 05/22/23 04:55: Creatinine 2.31H, INR Comment 1.1, Platelet Count 112L, Total Bilirubin 0.8 Results/Orders Lab Results Laboratory Tests Test 05/22/23 04:55 Range/Units White Blood Count 5.8 4.3-11.0 10^3/uL Red Blood Count 4.31 4.30-5.52 10^6/uL Hemoglobin 13.4 13.3-17.7 g/dL Hematocrit 39 L 40-54 % Mean Corpuscular Volume 91 80-99 fL Mean Corpuscular Hemoglobin 31 25-34 pg Mean Corpuscular Hemoglobin Concent 34 32-36 g/dL Red Cell Distribution Width 15.0 H 10.0-14.5 % Platelet Count 112 L 130-400 10^3/uL Mean Platelet Volume 10.5 9.0-12.2 fL Immature Granulocyte % (Auto) 0 % Neutrophils (%) (Auto) 62 42-75 % Lymphocytes (%) (Auto) 30 12-44 % Monocytes (%) (Auto) 5 0-12 % Eosinophils (%) (Auto) 2 0-10 % Basophils (%) (Auto) 1 0-10 % Neutrophils # (Auto) 3.6 1.8-7.8 10^3/uL Lymphocytes # (Auto) 1.7 1.0-4.0 10^3/uL Monocytes # (Auto) 0.3 0.0-1.0 10^3/uL Eosinophils # (Auto) 0.1 0.0-0.3 10^3/uL Basophils # (Auto) 0.1 0.0-0.1 10^3/uL Immature Granulocyte # (Auto) 0.0 0.0-0.1 10^3/uL Percent Immature Platelet Fraction 2.5 0.0-7.6 % Prothrombin Time 14.3 12.2-14.7 SEC INR Comment 1.1 0.8-1.4 Activated Partial Thromboplast Time 38 H 24-35 SEC D-Dimer 0.37 0.00-0.49 UG/ML Sodium Level 139 135-145 MMOL/L Potassium Level 3.4 L 3.6-5.0 MMOL/L Chloride Level 110 H 98-107 MMOL/L Carbon Dioxide Level 16 L 21-32 MMOL/L Anion Gap 13 5-14 MMOL/L Blood Urea Nitrogen 21 H 7-18 MG/DL Creatinine 2.31 H 0.60-1.30 MG/DL Estimat Glomerular Filtration Rate 30 BUN/Creatinine Ratio 9 Glucose Level 148 H 70-105 MG/DL Calcium Level 8.9 8.5-10.1 MG/DL Corrected Calcium 8.7 8.5-10.1 MG/DL Magnesium Level 2.0 1.6-2.4 MG/DL Total Bilirubin 0.8 0.1-1.0 MG/DL Aspartate Amino Transf (AST/SGOT) 43 H 5-34 U/L Alanine Aminotransferase (ALT/SGPT) 35 0-55 U/L Alkaline Phosphatase 153 H 40-136 U/L Total Creatine Kinase 85 30-200 U/L Creatine Kinase MB 4.9 <6.6 NG/ML Myoglobin 43.8 10.0-92.0 NG/ML Troponin I 15.943 *H <0.028 NG/ML B-Type Natriuretic Peptide 442.3 H <100.0 PG/ML Total Protein 7.4 6.4-8.2 GM/DL Albumin 4.3 3.2-4.5 GM/DL Amylase Level 246 H 25-125 U/L Lipase 206 H 8-78 U/L Acetaminophen Level < 10 L 10-30 UG/ML Serum Alcohol < 10 <10 MG/DL My Orders Orders - PHIL CHAU DO Cbc And Automated Diff (05/22/23 04:48) Magnesium (05/22/23 04:48) Chest 1 View, Ap/Pa Only (05/22/23 04:48) Ekg Tracing (05/22/23 04:48) Comprehensive Metabolic Panel (05/22/23 04:48) Myoglobin Serum (05/22/23 04:48) Protime With Inr (05/22/23 04:48) Partial Thromboplastin Time (05/22/23 04:48) O2 (05/22/23 04:48) Monitor-Rhythm Ecg Trace Only (05/22/23 04:48) Ed Iv/Invasive Line Start (05/22/23 04:48) Creatine Kinase (05/22/23 04:48) Creatine Kinase Mb (05/22/23 04:48) Lipase (05/22/23 04:48) Amylase (05/22/23 04:48) Bnp Nghia (05/22/23 04:48) Fibrin Degradation Products (05/22/23 04:48) Troponin I [place] (05/22/23 04:48) Nitroglycerin 0.4 Mg Btl 25's (Nitroglyc (05/22/23 05:00) Aspirin Chewable Tablet (Aspirin Chewabl (05/22/23 05:00) Nitroglycerin Ointment (Nitroglycerin (05/22/23 05:15) Hydralazine Injection (Hydralazine Injec (05/22/23 05:30) Acetaminophen (05/22/23 05:41) Alcohol (05/22/23 05:41) Drug Screen Stat (Urine) (05/22/23 05:41) Ua Culture If Indicated (05/22/23 05:41) Aspirin Chewable Tablet (Aspirin Chewabl (05/22/23 05:45) Enoxaparin Injection (Enoxaparin Injecti (05/22/23 06:00) Clopidogrel Tablet (Clopidogrel Tablet) (05/22/23 06:15) Metoprolol Succinate (Xl) Tab (Metoprolo (05/22/23 06:15) Ed Iv/Invasive Line Start (05/22/23 06:08) Ns Iv 1000 Ml (Ns Iv 1000 Ml) (05/22/23 06:15) Ed Admission (Communication) (05/22/23 06:10) Medications Given in ED Current Medications Medications Dose Ordered Sig/Dilia Route Start Time Stop Time Status Last Admin Dose Admin Aspirin 324 mg ONCE ONCE PO 05/22/23 05:45 05/22/23 05:46 DC 05/22/23 05:54 324 MG Clopidogrel Bisulfate 300 mg ONCE ONCE PO 05/22/23 06:15 05/22/23 06:16 DC 05/22/23 06:29 300 MG Enoxaparin Sodium 80 mg ONCE ONCE SC 05/22/23 06:00 05/22/23 06:01 DC 05/22/23 05:56 80 MG Hydralazine HCl 10 mg ONCE ONCE IV 05/22/23 05:30 05/22/23 05:31 DC 05/22/23 05:41 10 MG Metoprolol Succinate 100 mg ONCE ONCE PO 05/22/23 06:15 05/22/23 06:16 DC 05/22/23 06:29 100 MG Nitroglycerin 1 inch ONCE ONCE TOP 05/22/23 05:15 05/22/23 05:16 DC 05/22/23 05:10 1 INCH Vital Signs/I&O 05/22/23 05/22/23 04:48 04:48 Temp 36.9 Pulse 77 Resp 16 B/P (MAP) 230/122 (158) Pulse Ox 99 O2 Delivery Room Air Room Air Capillary Refill : Progress Note : Progress Note VITALS ON ARRIVAL: TEMP 36.9=98.4, HR 72, RR 16, BP 230/122, O2 SAT 99% ON ROOM AIR GIVEN: -NITROPASTE--MININMAL IMPROVEMENT IN BLOOD PRESSURE -HYDRALAZINE -TOPROL XL -PLAVIX -ASPIRIN -LOVENOX -MORPHINE EKG IS UNCHANGED FROM PREVIOUS, NO ACUTE CHANGES CXR IS UNREMARKABLE, PENDING RADIOLOGIST REVIEW 0645--C/O CHEST PAIN--ALL ACROSS CHEST AND DOWN BOTH ARMS, RATES PAIN 8/10 MORPHINE ORDERED REVIEWED PRIOR RECORDS, INCLUDING ER VISITS, RECENT ADMIT, TESTS, ETC. ECG Initial ECG Impression Date: May 22, 2023 Initial ECG Impression Time: 04:57 Initial ECG Rate: 67 Initial ECG Intervals NC 111 QRS 109 QT/QTC 439/455 Initial ECG Impression: Nonspecific Changes Initial ECG Comparisson: Unchanged Comment INTERPRETED BY ME Diagnostic Imaging Comments CXR-- PER RADIOLOGIST REPORT AT 0615 FINDINGS: Heart size and pulmonary vascularity are within normal limits, and the lungs are clear, bilaterally. IMPRESSION: Unremarkable chest. Reviewed: Reviewed by Me Departure Communication (Admissions) 0589--SPOKE WITH DR. BROWNE, UNDERCOVER AGENT ASSOCIATE SCHOOL PSYCHOLOGIST. HE ADVISES TO ADMIT TO HOSPITALIST AND CONSULT DR. PATIÑO. RECOMMENDATIONS FOR ASPIRIN. LOVENOX 1 MG/KG ONCE A DAY, PLAVIX 300 MG NOW AND 75 MG DAILY, TOPROL XL 100 MG NOW AND DAILY, WELL IV NORMAL SALINE AT 100 ML/HR 0600--SPOKE WITH DR. NORWOOD, HOSPITALIST FOR [facility]. ACCEPTS PT FOR ADMIT. SHE WILL DO ADMIT ORDERS Impression Primary Impression: Chest pain Additional Impressions: Elevated troponin Chronic renal disease Rheumatoid arthritis Gout Hypertensive urgency Disposition: ADMITTED INPATIENT Condition: Stable Admissions Decision to Admit Reason: Admit from ER (General) Decision to Admit/Date: May 22, 2023 Time/Decision to Admit Time: 06:00 Departure-Patient Inst. Referrals: NO,LOCAL PHYSICIAN (PCP/Family) Primary Care Physician PHIL CHAU DO May 22, 2023 05:01
[2023-05-22 05:14] LABS: BASOPHILS # (AUTO) 0.1 10^3/uL (0.0-0.1); BASOPHILS % (AUTO) 1 % (0-10); EOSINOPHILS # (AUTO) 0.1 10^3/uL (0.0-0.3); EOSINOPHILS % (AUTO) 2 % (0-10); HEMATOCRIT 39 % (40-54); HEMOGLOBIN 13.4 g/dL (13.3-17.7); LYMPHOCYTES # (AUTO) 1.7 10^3/uL (1.0-4.0); LYMPHOCYTES % (AUTO) 30 % (12-44); MEAN CORPUSCULAR HEMOGLOBIN 31 pg (25-34); MEAN CORPUSCULAR HGB CONC 34 g/dL (32-36); MEAN CORPUSCULAR VOLUME 91 fL (80-99); MEAN PLATELET VOLUME 10.5 fL (9.0-12.2); MONOCYTES # (AUTO) 0.3 10^3/uL (0.0-1.0); MONOCYTES % (AUTO) 5 % (0-12); NEUTROPHILS # (AUTO) 3.6 10^3/uL (1.8-7.8); NEUTROPHILS % (AUTO) 62 % (42-75); PLATELET COUNT 112 10^3/uL (130-400); WHITE BLOOD COUNT 5.8 10^3/uL (4.3-11.0)
[2023-05-22] MEDS ORDERED: NITROGLYCERIN 2% OINT 1 GM UNIT DOSE PACKET TOP ONE (05:15)
[2023-05-22 05:24] LABS: ALBUMIN 4.3 GM/DL (3.2-4.5); POTASSIUM 3.4 MMOL/L (3.6-5.0)
[2023-05-22 05:26] LABS: CALCIUM 8.9 MG/DL (8.5-10.1)
[2023-05-22 05:27] LABS: TOTAL PROTEIN 7.4 GM/DL (6.4-8.2)
[2023-05-22 05:28] LABS: BILIRUBIN,TOTAL 0.8 MG/DL (0.1-1.0)
[2023-05-22 05:30] LABS: CREATININE SERUM 2.31 MG/DL (0.60-1.30)
[2023-05-22] MEDS ORDERED: hydrALAZINE INJECTION 20 MG/ML VIAL IV ONE (05:30)
[2023-05-22 05:32] LABS: INR 1.1 (0.8-1.4); PROTHROMBIN TIME PATIENT 14.3 SEC (12.2-14.7)
[2023-05-22 05:35] LABS: FIBRIN DEGRADATION PRODUCTS 0.37 UG/ML (0.00-0.49)
[2023-05-22 05:41] LABS: CREATINE KINASE MB 4.9 NG/ML (<6.6)
[2023-05-22] MEDS ORDERED: ENOXAPARIN 80 MG/0.8 ML SYRINGE SC ONE (06:00)
--- NOTE | 2023-05-22 06:13 | Diagnostic Imaging Report ---
INDICATION: Chest pain. Single AP view of the chest is obtained with comparison made study of 05/04/2023. FINDINGS: Heart size and pulmonary vascularity are within normal limits, and the lungs are clear, bilaterally. IMPRESSION: Unremarkable chest. Dictated by: Dictated on workstation # [id number]
[2023-05-22] MEDS ORDERED: NS IV 1000 ML 1,000 ML IV SCH (06:15)
[2023-05-22] MEDS ORDERED: CLOPIDOGREL 300 MG TABLET PO ONE (06:15)
[2023-05-22 06:21] LABS: ACETAMINOPHEN < 10 UG/ML (10-30)
[2023-05-22] MEDS ORDERED: morphine INJ 4 MG/ML 1 ML (VIAL/SYRINGE) IVP ONE (07:00)
[2023-05-22 07:46] LABS: AMPHETAMINE SCREEN, URINE NEGATIVE (NEGATIVE); BARBITURATE SCREEN URINE NEGATIVE (NEGATIVE); CANNABINOID SCREEN, URINE POSITIVE (NEGATIVE); COCAINE SCREEN URINE NEGATIVE (NEGATIVE); METHADONE STAT NEGATIVE (NEGATIVE); OPIATE SCREEN URINE NEGATIVE (NEGATIVE); OXYCODONE STAT NEGATIVE (NEGATIVE); TRICYCLIC ANTIDEPRESSANTS SCRE NEGATIVE (NEGATIVE)
[2023-05-22 07:51] LABS: BILIRUBIN,URINE NEGATIVE (NEGATIVE); CLARITY,URINE CLEAR; COLOR,URINE YELLOW; GLUCOSE, URINE (UA) NEGATIVE (NEGATIVE); KETONES,URINE NEGATIVE (NEGATIVE); LEUKOCYTE ESTERASE ,URINE NEGATIVE (NEGATIVE); NITRITE,URINE NEGATIVE (NEGATIVE); PROTEIN,URINE 2+ (NEGATIVE)
[2023-05-22 07:52] LABS: BACTERIA,URINE NEGATIVE /HPF
[2023-05-22] MEDS ORDERED: BISACODYL 10 MG SUPPOSITORY PR PRN (09:00)
[2023-05-22] MEDS ORDERED: NS IV 500 ML 500 ML IV PRN (09:00)
[2023-05-22] MEDS ORDERED: CALCIUM CARBONATE 500 MG CHEW TABLET PO PRN (09:00)
[2023-05-22] MEDS ORDERED: ONDANSETRON INJECTION 4 MG/2 ML (SDV) IV PRN (09:00)
[2023-05-22] MEDS ORDERED: LACTULOSE SYRUP 10GM/15ML 30ML UDC PO PRN (09:00)
[2023-05-22] MEDS ORDERED: ONDANSETRON 4 MG ORAL DISSOLVE TABLET PO PRN (09:00)
[2023-05-22] MEDS ORDERED: diphenhydrAMINE INJ 50 MG/ML VIAL IVP PRN (09:00)
[2023-05-22] MEDS ORDERED: ANTACID SUSPENSION 30 ML UDC PO PRN (09:00)
[2023-05-22] MEDS ORDERED: hydrALAZINE INJECTION 20 MG/ML VIAL IV PRN (09:00)
[2023-05-22] MEDS ORDERED: PATIENT MAY USE OWN MEDS, ALL PO SCH (09:00)
[2023-05-22] MEDS ORDERED: ACETAMINOPHEN 325 MG TABLET PO PRN (09:00)
[2023-05-22] MEDS ORDERED: diphenhydrAMINE 25 MG TABLET PO PRN (09:00)
[2023-05-22] MEDS ORDERED: MILK OF MAGNESIA 400 MG/5 ML 30 ML UDC PO PRN (09:00)
[2023-05-22] MEDS ORDERED: HYDROmorphone INJECTION 2 MG/ML VIAL IV PRN (09:00)
[2023-05-22 09:26] LABS: CHOLESTEROL 113 MG/DL (< 200); HDL CHOLESTEROL 49 MG/DL (40-60); TRIGLYCERIDES 127 MG/DL (<150); VLDL CHOLESTEROL 25 MG/DL (5-40)
[2023-05-22] MEDS: NS IV 1000 ML 1,000 ML IV SCH ×2 (09:42→21:42)
[2023-05-22] MEDS: oxyCODONE IMMEDIATE RELEASE 5 MG TABLET PO PRN ×2 (09:43→20:55)
[2023-05-22] MEDS ORDERED: amLODIPine 10 MG TABLET PO NR (10:00)
--- NOTE | 2023-05-22 10:46 | Tele-ICU Progress Note ---
Subjective Date Seen by a Provider: May 22, 2023 Time Seen by a Provider: 10:45 Subjective/Events-last exam (Tele-ICU Physician , Progress Note ) Service provided via interactive audio and video telecommunications E-CARE s te to a patient admitted to ICU bed in [facility]. Patient is seen today due to persistent need of ICU care Available chart/ vitals / labs / Images reviewed Video assessment done using teleICU camera, rest of exam as per RN He is a 72-year-old male with a past medical history of hypertension, gout and rheumatoid arthritis presented to the emergency room with chest pain and found to have markedly elevated troponin. He is admitted to the intensive care unit for non-STEMI and cardiology consultation has been requested. He is already given Lovenox, aspirin and Plavix. Cardiology consultation has been requested and was attended by Dr. Nieves. Reportedly patient refused cardiac catheterization and wants only medical management. Currently he denies any chest pain.. Impression 1. Non-STEMI 2. History of hypertension 3. History of cannabis abuse 4. Rheumatoid arthritis on no medications 5. History of gout. Recommendations 1. Continue aspirin Plavix per cardiology 2. Continue Lovenox 3. Revisit and discuss again for possible cardiac catheterization tomorrow whether he is agreeable. Coordination of care with primary care physician and bedside consultants. I am remotely monitoring this patient from Tele icu station in [place]. I am unable to do the bedside exam, and history/physical and pertinent information is taken from other notes in the computer and bedside staff. Certain portions of this document may have been dictated utilizing voice recognition technology such as iPling. Inherent to this technology, typographical and grammatical errors may exist. As much as I am diligent to identify and correct to these mistakes, some errors may remain in the document. Critical care time devoted to this patient today is approximately is-20 minutes.- Sepsis Event Evaluation Height, Weight, BMI Height: '" Weight: lbs. oz. kg; 23.82 BMI Method: Exam Exam Patient acknowledged, consented, and participated in this virtual visit which was conducted using real time audio/video Vital Signs Date Time Temp Pulse Resp B/P (MAP) Pulse Ox O2 Delivery O2 Flow Rate FiO2 05/22/23 10:00 94 21 212/151 (171) 99 Room Air 05/22/23 09:45 73 10 203/125 (151) 99 Room Air 05/22/23 09:30 77 10 194/186 (189) 99 Room Air 05/22/23 09:15 78 17 200/120 (146) 98 Room Air 05/22/23 09:00 73 9 203/118 (146) 99 Room Air 05/22/23 08:57 77 05/22/23 08:50 72 16 184/113 97 Room Air 05/22/23 08:45 75 9 202/127 (152) 99 Room Air 05/22/23 04:48 Room Air 05/22/23 04:48 36.9 77 16 230/122 (158) 99 Room Air Height & Weight Height: '" Weight: lbs. oz. kg; 23.82 BMI Method: General Appearance: No Apparent Distress, Anxious, Thin HEENT: PERRL/EOMI, Normal ENT Inspection Neck: Normal Inspection Respiratory: Chest Non Tender, Normal Breath Sounds, No Accessory Muscle Use, No Respiratory Distress Cardiovascular: Regular Rate, Rhythm, No Edema, No JVD, No Murmur, Normal Peripheral Pulses Capillary Refill: Less Than 3 Seconds Extremity: Normal Capillary Refill, Normal Range of Motion, Other (PT WITH LARGE GOUTY AND/OR RHEUMATOID NODULES TO ELBOWS. 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
--- NOTE | 2023-05-22 10:48 | History & Physical ---
HPI History of Present Illness: Pt states his made him come in because he has had chest pain down both arms and numbness in both feet since just after he was discharged, tried to manage at home, but kept getting worse to where he couldn't do anything at all, if he got up to go the bathroom and sat back down would be out of breath. No chest pain now. He has a history of RA and CKD, he followed with Rheum in the past but the physician "kind of disappeared" when COVID started. He hasn't been seeing anybody regularly, had switched to Dr. Farrell for a while after Dr. Loving , and all his meds got changed and he feels things have been downhill since then. He saw Dr. Hallie Mckeon last week at [facility] and had labs and urine testing done. He says he takes verapamil and clonidine for blood pressure, had been given olmesartan but told to hold by [facility]. He says his blood pressure at home has been in the 150s/90s. He also reports large weight loss over 50 lb in last year. Source: patient Date seen by provider: May 22, 2023 Time Seen by Provider: 10:43 Attending Physician No,Local Physician PCP Admitting Physician: Lakeisha Bond DO Attending Physician: Lakeisha Bond DO Consult Date of Admission May 22, 2023 at 08:47 Home Medications Home Medications Reviewed patient Home Medication Reconciliation performed by pharmacy medication reconciliations instructional support technician and/or nursing. Patients Allergies have been reviewed. Allergies Coded Allergies: NKANo Known Allergies (Unverified Allergy, Mild, 06/10/09) FKW-Wmtizo-Iolkir Hx Patient Social History Smoking Status: Never a Smoker Alcohol Use?: No (Quit 14 years ago, reports "too much" but not heavily) Substance type: Marijuana Immunizations Up To Date Influenza Vaccine Up-to-Date: No; Not Current First/Initial COVID19 Vaccinat: YES Second COVID19 Vaccination Victorino: YES Third COVID19 Vaccination Date: YES Past Medical History PMHx: Gout RA Chronic kidney disease SurgHx: Bilateral knee scopes Multiple fracture repairs, unable to recall all of them Tonsillectomy and adenoidectomy Family Medical History Significant Family History: Heart Disease, Hypertension Review of Systems ([facility]) Constitutional: No fever Respiratory: No cough; short of breath Cardiovascular: chest pain Gastrointestinal: No abdominal pain, No constipation; diarrhea (started at last hospitalization, 1 bowel movement per day); No nausea, No vomiting Genitourinary: No dysuria Musculoskeletal: joint pain Skin: No rash Psychiatric/Neurological: Anxiety; Denies Depressed Reviewed Test Results Reviewed Test Results Lab Laboratory Tests Test 05/22/23 04:55 05/22/23 07:23 Range/Units White Blood Count 5.8 4.3-11.0 10^3/uL Red Blood Count 4.31 4.30-5.52 10^6/uL Hemoglobin 13.4 13.3-17.7 g/dL Hematocrit 39 L 40-54 % Mean Corpuscular Volume 91 80-99 fL Mean Corpuscular Hemoglobin 31 25-34 pg Mean Corpuscular Hemoglobin Concent 34 32-36 g/dL Red Cell Distribution Width 15.0 H 10.0-14.5 % Platelet Count 112 L 130-400 10^3/uL Mean Platelet Volume 10.5 9.0-12.2 fL Immature Granulocyte % (Auto) 0 % Neutrophils (%) (Auto) 62 42-75 % Lymphocytes (%) (Auto) 30 12-44 % Monocytes (%) (Auto) 5 0-12 % Eosinophils (%) (Auto) 2 0-10 % Basophils (%) (Auto) 1 0-10 % Neutrophils # (Auto) 3.6 1.8-7.8 10^3/uL Lymphocytes # (Auto) 1.7 1.0-4.0 10^3/uL Monocytes # (Auto) 0.3 0.0-1.0 10^3/uL Eosinophils # (Auto) 0.1 0.0-0.3 10^3/uL Basophils # (Auto) 0.1 0.0-0.1 10^3/uL Immature Granulocyte # (Auto) 0.0 0.0-0.1 10^3/uL Percent Immature Platelet Fraction 2.5 0.0-7.6 % Prothrombin Time 14.3 12.2-14.7 SEC INR Comment 1.1 0.8-1.4 Activated Partial Thromboplast Time 38 H 24-35 SEC D-Dimer 0.37 0.00-0.49 UG/ML Sodium Level 139 135-145 MMOL/L Potassium Level 3.4 L 3.6-5.0 MMOL/L Chloride Level 110 H 98-107 MMOL/L Carbon Dioxide Level 16 L 21-32 MMOL/L Anion Gap 13 5-14 MMOL/L Blood Urea Nitrogen 21 H 7-18 MG/DL Creatinine 2.31 H 0.60-1.30 MG/DL Estimat Glomerular Filtration Rate 30 BUN/Creatinine Ratio 9 Glucose Level 148 H 70-105 MG/DL Calcium Level 8.9 8.5-10.1 MG/DL Corrected Calcium 8.7 8.5-10.1 MG/DL Magnesium Level 2.0 1.6-2.4 MG/DL Total Bilirubin 0.8 0.1-1.0 MG/DL Aspartate Amino Transf (AST/SGOT) 43 H 5-34 U/L Alanine Aminotransferase (ALT/SGPT) 35 0-55 U/L Alkaline Phosphatase 153 H 40-136 U/L Total Creatine Kinase 85 30-200 U/L Creatine Kinase MB 4.9 <6.6 NG/ML Myoglobin 43.8 10.0-92.0 NG/ML Troponin I 15.943 *H <0.028 NG/ML B-Type Natriuretic Peptide 442.3 H <100.0 PG/ML Total Protein 7.4 6.4-8.2 GM/DL Albumin 4.3 3.2-4.5 GM/DL Triglycerides Level 127 <150 MG/DL Cholesterol Level 113 < 200 MG/DL LDL Cholesterol Direct 44 1-129 MG/DL VLDL Cholesterol 25 5-40 MG/DL HDL Cholesterol 49 40-60 MG/DL Amylase Level 246 H 25-125 U/L Lipase 206 H 8-78 U/L Acetaminophen Level < 10 L 10-30 UG/ML Serum Alcohol < 10 <10 MG/DL Urine Color YELLOW Urine Clarity CLEAR Urine pH 6.0 5-9 Urine Specific [place] 1.010 L 1.016-1.022 Urine Protein 2+ H NEGATIVE Urine Glucose (UA) NEGATIVE NEGATIVE Urine Ketones NEGATIVE NEGATIVE Urine Nitrite NEGATIVE NEGATIVE Urine Bilirubin NEGATIVE NEGATIVE Urine Urobilinogen 0.2 < = 1.0 MG/DL Urine Leukocyte Esterase NEGATIVE NEGATIVE Urine RBC (Auto) TRACE H NEGATIVE Urine RBC NONE /HPF Urine WBC NONE /HPF Urine Squamous Epithelial Cells NONE /HPF Urine Crystals NONE /LPF Urine Bacteria NEGATIVE /HPF Urine Casts NONE /LPF Urine Mucus NEGATIVE /LPF Urine Culture Indicated NO Urine Opiates Screen NEGATIVE NEGATIVE Urine Oxycodone Screen NEGATIVE NEGATIVE Urine Methadone Screen NEGATIVE NEGATIVE Urine Barbiturates Screen NEGATIVE NEGATIVE Ur Tricyclic Antidepressants Screen NEGATIVE NEGATIVE Urine Phencyclidine Screen NEGATIVE NEGATIVE Urine Amphetamines Screen NEGATIVE NEGATIVE Urine Methamphetamines Screen NEGATIVE NEGATIVE Urine Benzodiazepines Screen NEGATIVE NEGATIVE Urine Cocaine Screen NEGATIVE NEGATIVE Urine Cannabinoids Screen POSITIVE H NEGATIVE Radiology CXR 05/22/23: Unremarkable Physical Exam-(CHC) Physical Exam Vital Signs VS - Last 72 Hours, by Label 05/22/23 05/22/23 05/22/23 05/22/23 04:48 04:48 08:45 08:50 Temp 36.9 Pulse 77 75 72 Resp 16 9 16 B/P (MAP) 230/122 (158) 202/127 (152) 184/113 Pulse Ox 99 99 97 O2 Delivery Room Air Room Air Room Air Room Air 05/22/23 05/22/23 05/22/23 05/22/23 08:57 09:00 09:15 09:30 Pulse 77 73 78 77 Resp 9 17 10 B/P (MAP) 203/118 (146) 200/120 (146) 194/186 (189) Pulse Ox 99 98 99 O2 Delivery Room Air Room Air Room Air 05/22/23 05/22/23 05/22/23 09:45 10:00 11:00 Pulse 73 94 83 Resp 10 23 B/P (MAP) 203/125 (151) 212/151 (171) 224/158 (180) Pulse Ox 99 99 99 O2 Delivery Room Air Room Air Room Air Capillary Refill : Less Than 3 Seconds General Appearance: no apparent distress HEENT: No scleral icterus (R), No scleral icterus (L) Respiratory: lungs clear, normal breath sounds Cardiovascular: regular rate, rhythm, no edema, no murmur Gastrointestinal: normal bowel sounds, non tender, soft Neurologic/Psychiatric: alert, normal mood/affect Skin: warm/dry Assessment/Plan Assessment/Plan Admission Status: Inpatient Order (span 2 midnights) Reason for Inpatient Admission: Hypertensive emergency with elevated troponin (1) Elevated troponin Status: Acute Assessment & Plan: Cardiology consulted, appreciate recommendations. Received asa, plavix, beta rodrigo and enoxaparin 1 mg/kg in ER. (2) Chest pain Status: Acute Assessment & Plan: Suspect possible NSTEMI given elevated troponin, appreciate Cardiology recommendations. (3) Hypertensive emergency Status: Acute Assessment & Plan: Initial BP meds ordered per Cardiology, appreciate recommendations. (4) Chronic renal disease Status: Chronic Assessment & Plan: Has not been followed by Nephrology, reviewed clinic chart and he was referred at his hospital follow up visit 05/17/[address]keon [address] Dr. Zahra Carpenter and labs and renal US ordered. Cr appears to be near his recent baseline. Qualifiers: Qualified Codes: N18.4 - Chronic kidney disease, stage 4 (severe) (5) Rheumatoid arthritis Status: Chronic Assessment & Plan: No Rheumatology records available, reviewed clinic visit notes and descriptions of diagnosis and treatment were unclear. Labs were drawn 05/17, are still pending outpatient. Reportedly off of opiate pain medications for quite some time. Per outpatient clinic notes, discussion was had regarding Suboxone as a safer/recommended option for him and saliva testing done as he reported being unable to leave a urine sample. Results are pending. (6) Gout Status: Chronic Assessment & Plan: No acute issues noted. (7) DVT prophylaxis Status: Acute Assessment & Plan: On treatment dose enoxaparin Clinical Quality Measures AMI/AHF: ASA po Prior to arrival: Yes ((2) 81 MG PO) ALEXA LEAHY MD May 22, 2023 10:48
[2023-05-22] MEDS ORDERED: inSUlin ASPART 1 UNIT/0.01 ML (PER UNIT) SC SCH (11:00)
[2023-05-22] MEDS: NITROGLYCERIN 2% OINT 1 GM UNIT DOSE PACKET TOP SCH ×2 (11:04→17:08)
--- NOTE | 2023-05-22 12:47 | Consultation-Cardiology ---
HPI-Cardiology Cardiology Consultation: Date of Consultation 05/22/23 Time Seen by a Provider: 09:00 Date of Admission Attending Physician No,Local Physician Admitting Physician Admitting Physician: Lakeisha Bond DO Attending Physician: Luz Camarena MD Consulting Physician FABIAN BROWNE MD, MA, FACP, FACC, FSCAI, CCDS Physician requesting consult: Dr Camarena HPI: Chief Complaint: Reason for Card consult: NSTEMI 72 yo man with 5 days of intermittent chest and bilat shoulder and arm pains that have now resolved, he says. Continues with chronic pains involving the back and the large and small joints of the limbs. Denies shortness of breath. Denies palp or syncope or swelling. Does report gen malaise and weakness and poor sleep. Denies n/v/d Review of Systems-Cardiology Review of Systems Constitutional: As described under HPI Eyes: No vision change Ears/Nose/Throat: No ear discharge, No nasal drainage, No recent hearing loss Respiratory: As described under HPI Cardiovascular: As described under HPI Gastrointestinal: As described under HPI Genitourinary: No hematuria, No urine frequency changes Musculoskeletal: As describe under HPI Skin: No rash, No ulcerations Psychiatric/Neurological: No seizure, No focal weakness, No syncope Hematologic: No bleeding abnormalities BUU-Xysrla-Dovvff Hx Patient Social History Smoking Status: Never a Smoker Alcohol Use?: No (Quit 14 years ago, reports "too much" but not heavily) Substance type: Marijuana Pt feels they are or have been: No Past Medical History PMH As described under Assessment. Family Medical History Family Medical History: He does not report fam h/o early CAD Allergies and Home Medications Allergies Coded Allergies: NKANo Known Allergies (Unverified Allergy, Mild, 06/10/09) Patient Home Medication List Home Medication List Reviewed: Yes Allopurinol (Allopurinol) 100 Mg Tablet, 100 MG PO DAILY Prescribed by: KAM UGARTE on 05/06/23939 Aspirin (Aspirin) 81 Mg Tab.chew, 81 MG PO DAILY, (Reported) Entered as Reported by: Willy Lomax on 05/04/232034 Azithromycin (Azithromycin) 250 Mg Tablet, 250 MG PO HS Prescribed by: KAM UGARTE on 05/06/23939 Betamethasone/Propylene Glyc (Betamethasone Dp Aug 0.05% Crm) 0.05 % Cream..g., 15 GM TP BID PRN, (Reported) Entered as Reported by: Willy Lomax on 05/04/232034 Buprenorphine HCl/Naloxone HCl (Suboxone 4 mg-1 mg Sl Film) 4 Mg-1 Mg Film, 1 EACH SL TID, (Reported) Entered as Reported by: Willy Lomax on 05/04/232034 Cephalexin (Cephalexin) 500 Mg Tablet, 500 MG PO BID Prescribed by: KAM UGARTE on 05/06/23939 Clonidine HCl (Clonidine HCl) 0.1 Mg Tablet, 0.1 MG PO BID, (Reported) Entered as Reported by: Willy Lomax on 05/04/232034 Fluoxetine HCl (Prozac) 10 Mg Capsule, 10 MG PO DAILY, (Reported) Entered as Reported by: Willy Lomax on 05/04/232034 Hydrocodone/Acetaminophen (Hydrocodone-Acetamin 5-325 mg) 5 Mg-325 Mg Tablet, 1 EA PO Q4H PRN for PAIN-MODERATE (5-7) Prescribed by: KAM UGARTE on 05/06/23940 Hydroxyzine HCl (Hydroxyzine HCl) 25 Mg Tablet, 25 MG PO PRN, (Reported) Entered as Reported by: Willy Lomax on 05/04/232034 Hydroxyzine Pamoate (Hydroxyzine Pamoate) 25 Mg Capsule, 25 MG PO DAILY, (Reported) Entered as Reported by: Willy Lomax on 05/04/232034 Olmesartan Medoxomil (Olmesartan Medoxomil) 40 Mg Tablet, 40 MG PO DAILY Prescribed by: KAM UGARTE on 05/06/23939 Verapamil HCl (Verapamil HCl) 80 Mg Tablet, 80 MG PO BID Prescribed by: KAM UGARTE on 05/06/23939 Physical Exam-Cardiology Physical Exam Vital Signs/I&O 05/22/23 05/22/23 05/22/23 05/22/23 04:48 04:48 08:45 08:50 Temp 36.9 Pulse 77 75 72 Resp 16 9 16 B/P (MAP) 230/122 (158) 202/127 (152) 184/113 Pulse Ox 99 99 97 O2 Delivery Room Air Room Air Room Air Room Air 05/22/23 05/22/23 05/22/2323 08:57 09:00 09:15 09:30 Pulse 77 73 78 77 Resp 9 17 10 B/P (MAP) 203/118 (146) 200/120 (146) 194/186 (189) Pulse Ox 99 98 99 O2 Delivery Room Air Room Air Room Air 05/22/23 05/22/23 05/22/23 05/22/23 09:45 10:00 11:00 11:49 Temp 36.3 Pulse 73 94 83 Resp 10 21 23 B/P (MAP) 203/125 (151) 212/151 (171) 224/158 (180) Pulse Ox 99 99 99 O2 Delivery Room Air Room Air Room Air 05/22/23 05/22/23 12:00 12:13 Pulse 73 71 Resp 17 B/P (MAP) 181/112 (135) Pulse Ox 98 O2 Delivery Room Air Capillary Refill : Less Than 3 Seconds Constitutional: AAO x 3, well-developed, well-nourished HEENT: EOMI, hearing is well preserved; No xanthelasmas are seen Neck: carotid pulses are 2 + bilaterally, with good upstrokes Respiratory: No accessory muscle use; chest expansion is symmetric, chest is bilaterally symmetric, other (fair to good, bilateral air entry) Cardiovascular: regular rate-rhythm, S1 and S2, systolic murmur (soft ODALIS at card base) Gastrointestinal: No tender; soft; No guarding, No rebound; audible bowel sounds Extremities: No clubbing, No cyanosis, No significant edema Neurologic/Psychiatric: oriented x 3, other (moves all limbs equally) Skin: No rash on exposed areas, No ulcerations on exposed areas Data Review Labs Laboratory Tests 05/22/23 04:55: White Blood Count 5.8, Red Blood Count 4.31, Hemoglobin 13.4, Hematocrit 39L, Mean Corpuscular Volume 91, Mean Corpuscular Hemoglobin 31, Mean Corpuscular Hemoglobin Concent 34, Red Cell Distribution Width 15.0H, Platelet Count 112L, Mean Platelet Volume 10.5, Immature Granulocyte % (Auto) 0, Neutrophils (%) (Auto) 62, Lymphocytes (%) (Auto) 30, Monocytes (%) (Auto) 5, Eosinophils (%) (Auto) 2, Basophils (%) (Auto) 1, Neutrophils # (Auto) 3.6, Lymphocytes # (Auto) 1.7, Monocytes # (Auto) 0.3, Eosinophils # (Auto) 0.1, Basophils # (Auto) 0.1, Immature Granulocyte # (Auto) 0.0, Percent Immature Platelet Fraction 2.5, Prothrombin Time 14.3, INR Comment 1.1, Activated Partial Thromboplast Time 38H, D-Dimer 0.37, Sodium Level 139, Potassium Level 3.4L, Chloride Level 110H, Carbon Dioxide Level 16L, Anion Gap 13, Blood Urea Nitrogen 21H, Creatinine 2.31H, Estimat Glomerular Filtration Rate 30, BUN/Creatinine Ratio 9, Glucose Level 148H, Calcium Level 8.9, Corrected Calcium 8.7, Magnesium Level 2.0, Total Bilirubin 0.8, Aspartate Amino Transf (AST/SGOT) 43H, Alanine Aminotransferase (ALT/SGPT) 35, Alkaline Phosphatase 153H, Total Creatine Kinase 85, Creatine Kinase MB 4.9, Myoglobin 43.8, Troponin I 15.943*H, B-Type Natriuretic Peptide 442.3H, Total Protein 7.4, Albumin 4.3, Triglycerides Level 127, Cholesterol Level 113, LDL Cholesterol Direct 44, VLDL Cholesterol 25, HDL Cholesterol 49, Amylase Level 246H, Lipase 206H, Acetaminophen Level < 10L, Serum Alcohol < 10 05/22/23 07:23: Urine Color YELLOW, Urine Clarity CLEAR, Urine pH 6.0, Urine Specific [place] 1.010L, Urine Protein 2+H, Urine Glucose (UA) NEGATIVE, Urine Ketones NEGATIVE, Urine Nitrite NEGATIVE, Urine Bilirubin NEGATIVE, Urine Urobilinogen 0.2, Urine Leukocyte Esterase NEGATIVE, Urine RBC (Auto) TRACEH, Urine RBC NONE, Urine WBC NONE, Urine Squamous Epithelial Cells NONE, Urine Crystals NONE, Urine Bacteria NEGATIVE, Urine Casts NONE, Urine Mucus NEGATIVE, Urine Culture Indicated NO, Urine Opiates Screen NEGATIVE, Urine Oxycodone Screen NEGATIVE, Urine Methadone Screen NEGATIVE, Urine Barbiturates Screen NEGATIVE, Ur Tricyclic Antidepressants Screen NEGATIVE, Urine Phencyclidine Screen NEGATIVE, Urine Amphetamines Screen NEGATIVE, Urine Methamphetamines Screen NEGATIVE, Urine Benzodiazepines Screen NEGATIVE, Urine Cocaine Screen NEGATIVE, Urine Cannabinoids Screen POSITIVEH Laboratory Tests 05/22/23 04:55 A/P-Cardiology Assessment/Admission Diagnosis Acute/recent NSTEMI (Type 1) CKD - 4 - Cr 1.9 on 08/18/09 and 2.3 on 05/22/23 CAD, mild to moderate on card cath of 2009 Chronic pain due to rheumatoid arthritis and gout Severe hypertension Discussion and Recomendations * I discussed treatment options with him in detail. Recommended cath (albeit with [id number] risk, given CKD-4). He understands and wishes to be managed conservatively. States will think about it and let us know if changes his mind * Treat with bb, statin, DAPT * Also ccb for better bp control * iv fluids to maintain/improve renal function * Monitor labs Clinical Quality Measures AMI/AHF: ASA po Prior to arrival: Yes ((2) 81 MG PO) FABIAN BROWNE MD FACP FAC CCDS May 22, 2023 12:47
[2023-05-22] MEDS: cloNIDine 0.1 MG TABLET PO PRN ×2 (12:58→20:55)
[2023-05-22] MEDS ORDERED: MULT-1067 PO (13:34)
[2023-05-22] MEDS ORDERED: FLUO10TA28 PO (13:34)
[2023-05-22] MEDS ORDERED: ACET-2267 PO (13:34)
[2023-05-22] MEDS ORDERED: VERA80TA4 PO (13:34)
[2023-05-22] MEDS ORDERED: ALLO300T2 PO (13:34)
[2023-05-22] MEDS ORDERED: VITA-189 PO (13:34)
[2023-05-22] MEDS: ENOXAPARIN 80 MG/0.8 ML SYRINGE SC SCH (17:09)
[2023-05-22] MEDS: MELATONIN 3 MG TABLET PO PRN (20:55)
[2023-05-22] MEDS: DOCUSATE SODIUM 100 MG CAPSULE PO SCH (21:08)
[2023-05-22] MEDS: SENNOSIDES 8.6 MG TABLET PO SCH (21:08)
[2023-05-23] MEDS: NITROGLYCERIN 2% OINT 1 GM UNIT DOSE PACKET TOP SCH ×5 (00:09→22:26)
[2023-05-23 04:35] LABS: BASOPHILS # (AUTO) 0.1 10^3/uL (0.0-0.1); BASOPHILS % (AUTO) 2 % (0-10); MEAN PLATELET VOLUME 10.3 fL (9.0-12.2); MONOCYTES # (AUTO) 0.4 10^3/uL (0.0-1.0)
[2023-05-23 04:36] LABS: EOSINOPHILS # (AUTO) 0.1 10^3/uL (0.0-0.3); EOSINOPHILS % (AUTO) 2 % (0-10); HEMATOCRIT 32 % (40-54); LYMPHOCYTES # (AUTO) 1.7 10^3/uL (1.0-4.0); LYMPHOCYTES % (AUTO) 31 % (12-44); MEAN CORPUSCULAR HEMOGLOBIN 31 pg (25-34); MEAN CORPUSCULAR HGB CONC 34 g/dL (32-36); MEAN CORPUSCULAR VOLUME 90 fL (80-99); MONOCYTES % (AUTO) 7 % (0-12); NEUTROPHILS # (AUTO) 3.1 10^3/uL (1.8-7.8); NEUTROPHILS % (AUTO) 59 % (42-75); PLATELET COUNT 104 10^3/uL (130-400); WHITE BLOOD COUNT 5.3 10^3/uL (4.3-11.0)
[2023-05-23 04:42] LABS: ALBUMIN 3.3 GM/DL (3.2-4.5)
[2023-05-23 04:43] LABS: POTASSIUM 3.7 MMOL/L (3.6-5.0)
[2023-05-23 04:44] LABS: CALCIUM 8.1 MG/DL (8.5-10.1)
[2023-05-23 04:45] LABS: TOTAL PROTEIN 5.7 GM/DL (6.4-8.2)
[2023-05-23 04:47] LABS: BILIRUBIN,TOTAL 0.7 MG/DL (0.1-1.0)
[2023-05-23 04:48] LABS: PHOSPHORUS 2.9 MG/DL (2.3-4.7)
[2023-05-23 04:49] LABS: CREATININE SERUM 2.04 MG/DL (0.60-1.30)
[2023-05-23 04:51] LABS: MAGNESIUM 1.8 MG/DL (1.6-2.4)
[2023-05-23] MEDS ORDERED: MAGNESIUM 1 GM/100 ML IVPB 100 ML IV SCH ×2 (05:30→06:00)
[2023-05-23] MEDS: ENOXAPARIN 80 MG/0.8 ML SYRINGE SC SCH ×2 (05:58→17:34)
[2023-05-23] MEDS ORDERED: POTASSIUM CL 10MEQ/50ML IVPB 50 ML IV SCH (06:00)
[2023-05-23] MEDS ORDERED: POTASSIUM CHLORIDE 20 MEQ TABLET PO SCH (06:00)
[2023-05-23] MEDS: oxyCODONE IMMEDIATE RELEASE 5 MG TABLET PO PRN ×3 (06:01→20:26)
[2023-05-23] MEDS: cloNIDine 0.1 MG TABLET PO PRN ×2 (06:01→20:25)
--- NOTE | 2023-05-23 07:16 | Progress Note ---
GENO BASSETT MD, RESIDENT 05/23/23 0716: Subjective Subjective/Events-last exam Patient is doing well today, states he is no longer having any chest pain. Has no other concerns this morning. He continues to state that he does not want to have a heart cath done. Review of Systems General: No Chills, No Fatigue HEENT: No Head Aches Pulmonary: No Dyspnea, No Cough Cardiovascular: No: Chest Pain, Palpitations, Edema Gastrointestinal: No: Nausea, Vomiting, Diarrhea, Constipation Genitourinary: No Dysuria Neurological: No: Weakness Objective Exam Last Set of Vital Signs Vital Signs Date Time Temp Pulse Resp B/P (MAP) Pulse Ox O2 Delivery O2 Flow Rate FiO2 05/23/23 06:00 56 8 165/99 (126) 98 Room Air 05/23/23 04:00 36.6 Capillary Refill : Less Than 3 Seconds I&O Intake and Output 05/23/23 00:00 Intake Total 900 ml Output Total 2050 ml Balance -1150 ml Intake Oral 900 ml Output Urine Total 2050 ml Daily Weight Change No General: Alert, Oriented X3 HEENT: Atraumatic Neck: Supple Lungs: Clear to Auscultation, Normal Air Movement Heart: Regular Rate, No Murmurs Abdomen: Normal Bowel Sounds, Soft, No Tenderness Extremities: No Edema Skin: No Rashes Neuro: Normal Speech Results/Procedures Lab Laboratory Tests 05/22/23 07:23: Urine Color YELLOW, Urine Clarity CLEAR, Urine pH 6.0, Urine Specific [place] 1.010L, Urine Protein 2+H, Urine Glucose (UA) NEGATIVE, Urine Ketones NEGATIVE, Urine Nitrite NEGATIVE, Urine Bilirubin NEGATIVE, Urine Urobilinogen 0.2, Urine Leukocyte Esterase NEGATIVE, Urine RBC (Auto) TRACEH, Urine RBC NONE, Urine WBC NONE, Urine Squamous Epithelial Cells NONE, Urine Crystals NONE, Urine Bacteria NEGATIVE, Urine Casts NONE, Urine Mucus NEGATIVE, Urine Culture Indicated NO, Urine Opiates Screen NEGATIVE, Urine Oxycodone Screen NEGATIVE, Urine Methadone Screen NEGATIVE, Urine Barbiturates Screen NEGATIVE, Ur Tricyclic Antidepressants Screen NEGATIVE, Urine Phencyclidine Screen NEGATIVE, Urine Amphetamines Screen NEGATIVE, Urine Methamphetamines Screen NEGATIVE, Urine Benzodiazepines Screen NEGATIVE, Urine Cocaine Screen NEGATIVE, Urine Cannabinoids Screen POSITIVEH 05/23/23 04:18: White Blood Count 5.3, Red Blood Count 3.60L, Hemoglobin 11.0L, Hematocrit 32L, Mean Corpuscular Volume 90, Mean Corpuscular Hemoglobin 31, Mean Corpuscular Hemoglobin Concent 34, Red Cell Distribution Width 15.0H, Platelet Count 104L, Mean Platelet Volume 10.3, Immature Granulocyte % (Auto) 0, Neutrophils (%) (Auto) 59, Lymphocytes (%) (Auto) 31, Monocytes (%) (Auto) 7, Eosinophils (%) (Auto) 2, Basophils (%) (Auto) 2, Neutrophils # (Auto) 3.1, Lymphocytes # (Auto) 1.7, Monocytes # (Auto) 0.4, Eosinophils # (Auto) 0.1, Basophils # (Auto) 0.1, Immature Granulocyte # (Auto) 0.0, Percent Immature Platelet Fraction 2.2, Sodium Level 139, Potassium Level 3.7, Chloride Level 113H, Carbon Dioxide Level 18L, Anion Gap 8, Blood Urea Nitrogen 18, Creatinine 2.04H, Estimat Glomerular Filtration Rate 34, BUN/Creatinine Ratio 9, Glucose Level 116H, Calcium Level 8.1L, Corrected Calcium 8.7, Phosphorus Level 2.9, Magnesium Level 1.8, Total Bilirubin 0.7, Aspartate Amino Transf (AST/SGOT) 43H, Alanine Aminotransferase (ALT/SGPT) 23, Alkaline Phosphatase 108, Total Protein 5.7L, Albumin 3.3 Radiology CXR 05/22/23: Unremarkable Assessment/Plan Assessment/Plan Admission Status: Inpatient Order (span 2 midnights) (1) Elevated troponin Status: Acute Assessment & Plan: Cardiology consulted, appreciate recommendations. Received asa, plavix, beta rodrigo and enoxaparin 1 mg/kg in ER. We will continue to monitor for 1 more day and potentially discharge home tomorrow. Downgrading to cardiac stepdown. (2) Chest pain Status: Resolved Assessment & Plan: Suspect possible NSTEMI given elevated troponin, appreciate Cardiology recommendations. Chest pain resolved at this time. (3) Hypertensive emergency Status: Acute Assessment & Plan: Clonidine increased to 0.2 mg daily. Cardiology consulted, appreciate recommendations. (4) Chronic renal disease Status: Chronic Assessment & Plan: Has not been followed by Nephrology, reviewed clinic chart and he was referred at his hospital follow up visit 05/17/[address]keon [address] Dr. Aboul Magd and labs and renal US ordered. Cr appears to be near his recent baseline. Qualifiers: Qualified Codes: N18.4 - Chronic kidney disease, stage 4 (severe) (5) Rheumatoid arthritis Status: Chronic Assessment & Plan: No Rheumatology records available, reviewed clinic visit notes and descriptions of diagnosis and treatment were unclear. Labs were drawn 05/17, are still pending outpatient. Reportedly off of opiate pain medications for quite some time. Per outpatient clinic notes, discussion was had regarding Suboxone as a safer/recommended option for him and saliva testing done as he reported being unable to leave a urine sample. Results are pending. (6) Gout Status: Chronic Assessment & Plan: No acute issues noted. (7) DVT prophylaxis Status: Acute Assessment & Plan: On treatment dose enoxaparin Clinical Quality Measures AMI/AHF: ASA po Prior to arrival: Yes ((2) 81 MG PO) ALEXA LEAHY MD 05/23/23 1529: Supervisory-Addendum Brief Supervisory Addendum I personally performed the tam portions of the visit, discussed case with resident and concur with resident documentation of history, physical exam, assessment and treatment plan unless otherwise noted. GENO BASSETT MD, RESIDENT May 23, 2023 07:16 ALEXA LEAHY MD May 23, 2023 15:29
--- NOTE | 2023-05-23 08:12 | Tele-ICU Progress Note ---
Subjective Date Seen by a Provider: May 23, 2023 Time Seen by a Provider: 08:10 Subjective/Events-last exam (Tele-ICU Physician , Progress Note ) Service provided via interactive audio and video telecommunications [facility] s te to a patient admitted to ICU bed in [facility]. Patient is seen today due to persistent need of ICU care Available chart/ vitals / labs / Images reviewed Video assessment done using teleICU camera, rest of exam as per RN 72 M admitted with NSTEMI, started on Lovenox, ASA, Plavix, Pt did not want cardiac catherization, no futher CP, no SOB PMH, HTN, RA-not on meds, gout cannabis use Sepsis Event Evaluation Height, Weight, BMI Height: '" Weight: lbs. oz. kg; 23.82 BMI Method: Exam Exam Patient acknowledged, consented, and participated in this virtual visit which was conducted using real time audio/video Vital Signs Date Time Temp Pulse Resp B/P (MAP) Pulse Ox O2 Delivery O2 Flow Rate FiO2 05/23/23 08:00 60 11 138/80 (99) 97 Room Air 05/23/23 07:18 55 05/23/23 07:00 49 10 152/88 (109) 95 Room Air 05/23/23 06:00 56 8 165/99 (126) 98 Room Air 05/23/23 05:00 55 11 167/92 (126) 98 Room Air 05/23/23 04:00 36.6 05/23/23 04:00 96 Room Air 05/23/23 04:00 56 35 141/88 (114) 97 Room Air 05/23/23 03:00 58 14 146/86 (109) 97 Room Air 05/23/23 02:00 53 20 151/83 (110) 95 Room Air 05/23/23 01:00 53 05/23/23 01:00 53 21 142/86 (107) 95 Room Air 05/23/23 00:00 55 20 139/82 (105) 95 Room Air 05/22/23 23:59 96 Room Air 05/22/23 23:00 56 20 131/80 (104) 94 Room Air 05/22/23 22:00 64 11 140/110 (117) 92 Room Air 05/22/23 21:00 61 17 167/105 (133) 97 Room Air 05/22/23 20:00 60 25 167/101 (137) 95 Room Air 05/22/23 20:00 96 Room Air 05/22/23 19:52 36.4 05/22/23 19:30 58 14 173/101 (135) 98 Room Air 05/22/23 19:15 Room Air 05/22/23 19:15 65 13 158/98 (126) 96 Room Air 05/22/23 19:00 62 22 164/94 (126) 97 Room Air 05/22/23 19:00 62 05/22/23 18:00 59 9 164/101 (122) 98 Room Air 05/22/23 17:00 58 13 158/93 (114) 97 Room Air 05/22/23 16:00 61 22 150/95 (113) 97 Room Air 05/22/23 15:50 96 Room Air 05/22/23 15:47 36.5 05/22/23 15:00 63 13 143/95 (111) 96 Room Air 05/22/23 14:00 65 17 137/93 (108) 96 Room Air 05/22/23 13:00 71 14 169/102 (124) 97 Room Air 05/22/23 12:13 71 05/22/23 12:00 73 17 181/112 (135) 98 Room Air 05/22/23 11:49 36.3 05/22/23 11:00 83 23 224/158 (180) 99 Room Air 05/22/23 10:00 94 21 212/151 (171) 99 Room Air 05/22/23 09:45 73 10 203/125 (151) 99 Room Air 05/22/23 09:30 77 10 194/186 (189) 99 Room Air 05/22/23 09:15 78 17 200/120 (146) 98 Room Air 05/22/23 09:00 73 9 203/118 (146) 99 Room Air 05/22/23 08:57 77 05/22/23 08:50 72 16 184/113 97 Room Air 05/22/23 08:45 75 9 202/127 (152) 99 Room Air I & O 05/23/23 07:00 Intake Total 1150 ml Output Total 3150 ml Balance -2000 ml Height & Weight Height: '" Weight: lbs. oz. kg; 23.82 BMI Method: General Appearance: No Apparent Distress, Anxious, Thin HEENT: PERRL/EOMI, Normal ENT Inspection Neck: Normal Inspection Respiratory: Chest Non Tender, Lungs Clear, Normal Breath Sounds, No Accessory Muscle Use, No Respiratory Distress Cardiovascular: Regular Rate, Rhythm, No Edema, No JVD, No Murmur, Normal Peripheral Pulses Capillary Refill: Less Than 3 Seconds Gastrointestinal: normal bowel sounds, non tender, soft Extremity: Normal Capillary Refill, Normal Range of Motion, No Pedal Edema, Other (PT WITH LARGE GOUTY AND/OR RHEUMATOID NODULES TO ELBOWS. 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, traffic clerk II- XII Norm as Tested Skin: Normal Color, Warm/Dry Results Lab Laboratory Tests 05/22/23 04:55 05/23/23 04:18 Assessment/Plan Assessment/Plan NSTEMI, will continue DAPT, beta rodrigo, amlodipine Pt does not want cardiac cath To go home today Critical Care: Critically Ill Patient Time spent with patient (mins): 15 CECY OLIVEIRA MD May 23, 2023 08:12
--- NOTE | 2023-05-23 08:47 | Progress Note - Cardiology ---
Cardiology SOAP Progress Note Subjective: Sitting up in bed No c/o CP, SOB or palpitations States he feels well this morning and wants to go home Objective: I&O/Vital Signs 05/22/23 05/22/23 05/22/23 05/22/23 21:00 22:00 23:00 23:59 Pulse 61 64 56 Resp 17 11 20 B/P (MAP) 167/105 (133) 140/110 (117) 131/80 (104) Pulse Ox 97 92 94 96 O2 Delivery Room Air Room Air Room Air Room Air 05/23/23 05/23/23 05/23/23 05/23/23 00:00 01:00 01:00 02:00 Pulse 55 53 53 53 Resp 20 21 20 B/P (MAP) 139/82 (105) 142/86 (107) 151/83 (110) Pulse Ox 95 95 95 O2 Delivery Room Air Room Air Room Air 05/23/23 05/23/23 05/23/23 05/23/23 03:00 04:00 04:00 04:00 Temp 36.6 Pulse 58 56 Resp 14 35 B/P (MAP) 146/86 (109) 141/88 (114) Pulse Ox 97 97 96 O2 Delivery Room Air Room Air Room Air 05/23/23 05/23/23 05/23/23 05/23/23 05:00 06:00 07:00 07:18 Pulse 55 56 49 55 Resp 11 8 10 B/P (MAP) 167/92 (126) 165/99 (126) 152/88 (109) Pulse Ox 98 98 95 O2 Delivery Room Air Room Air Room Air 05/23/23 08:00 Pulse 60 Resp 11 B/P (MAP) 138/80 (99) Pulse Ox 97 O2 Delivery Room Air 05/23/23 00:00 Intake Total 900 ml Output Total 2050 ml Balance -1150 ml Constitutional: AAO x 3, well-developed, well-nourished Respiratory: No accessory muscle use; chest expansion is symmetric, chest is bilaterally symmetric, other (fair to good, bilateral air entry) Cardiovascular: regular rate-rhythm, S1 and S2, systolic murmur (soft ODALIS at card base) Gastrointestional: No tender; soft; No guarding, No rebound; audible bowel sounds Extremities: No clubbing, No cyanosis, No significant edema Neurologic/Psychiatric: oriented x 3, other (moves all limbs equally) Skin: No rash on exposed areas, No ulcerations on exposed areas Results/Procedures: Labs Laboratory Tests 05/23/23 04:18: White Blood Count 5.3, Red Blood Count 3.60L, Hemoglobin 11.0L, Hematocrit 32L, Mean Corpuscular Volume 90, Mean Corpuscular Hemoglobin 31, Mean Corpuscular Hemoglobin Concent 34, Red Cell Distribution Width 15.0H, Platelet Count 104L, Mean Platelet Volume 10.3, Immature Granulocyte % (Auto) 0, Neutrophils (%) (Auto) 59, Lymphocytes (%) (Auto) 31, Monocytes (%) (Auto) 7, Eosinophils (%) (Auto) 2, Basophils (%) (Auto) 2, Neutrophils # (Auto) 3.1, Lymphocytes # (Auto) 1.7, Monocytes # (Auto) 0.4, Eosinophils # (Auto) 0.1, Basophils # (Auto) 0.1, Immature Granulocyte # (Auto) 0.0, Percent Immature Platelet Fraction 2.2, Sodium Level 139, Potassium Level 3.7, Chloride Level 113H, Carbon Dioxide Level 18L, Anion Gap 8, Blood Urea Nitrogen 18, Creatinine 2.04H, Estimat Glomerular Filtration Rate 34, BUN/Creatinine Ratio 9, Glucose Level 116H, Calcium Level 8.1L, Corrected Calcium 8.7, Phosphorus Level 2.9, Magnesium Level 1.8, Total Bilirubin 0.7, Aspartate Amino Transf (AST/SGOT) 43H, Alanine Aminotransferase (ALT/SGPT) 23, Alkaline Phosphatase 108, Total Protein 5.7L, Albumin 3.3 Microbiology 05/22/23 MRSA Screen - Final, Complete MRSA not isolated A/P: Assessment: Acute/recent NSTEMI (Type 1) CKD - 4 - Cr 1.9 on 08/18/09 and 2.3 on 05/22/23 CAD, mild to moderate on card cath of 2009 Chronic pain due to rheumatoid arthritis and gout Severe hypertension - improved Plan: * I have discussed treatment options with him in detail. Recommended cath (albeit with [id number] risk, given CKD-4). He again states he understands but again wishes to be managed conservatively * Continue bb, statin, DAPT * Continue ccb for better bp control * Continue iv fluids to maintain/improve renal function - renal function has improved * Monitor labs Clinical Quality Measures AMI/AHF: ASA po Prior to arrival: Yes ((2) 81 MG PO) BABAR TAVAREZ [facility] May 23, 2023 08:47
[2023-05-23] MEDS: ASPIRIN enteric coated 81MG TABLET PO SCH (08:49)
[2023-05-23] MEDS: CLOPIDOGREL 75 MG TABLET PO SCH (08:50)
[2023-05-23] MEDS: amLODIPine 10 MG TABLET PO SCH (08:50)
[2023-05-23] MEDS ORDERED: POTASSIUM CHLORIDE 20 MEQ TABLET PO ONE (09:00)
[2023-05-23] MEDS: SENNOSIDES 8.6 MG TABLET PO SCH ×2 (09:20→22:41)
[2023-05-23] MEDS: DOCUSATE SODIUM 100 MG CAPSULE PO SCH ×2 (09:20→22:41)
[2023-05-23] MEDS: NS IV 1000 ML 1,000 ML IV SCH (10:20)
--- NOTE | 2023-05-23 11:48 | Physical Therapy Evaluation ---
PT Evaluation-General Medical Diagnosis Admission Date May 22, 2023 at 08:47 Medical Diagnosis: Chest Pain, Numbness in feet Onset Date: May 22, 2023 Therapy Diagnosis Therapy Diagnosis: Gait deficit Precautions Precautions/Isolations: Fall Prevention, Standard Precautions Weight Bear Status Right Lower Extremity: Right Full Weight Bearing Left Lower Extremity: Left Full Weight Bearing Referral Physician: Dr. Hodges Reason for Referral: Evaluation/Treatment Medical History Pertinent Medical History: Rheumatoid Arthritis Reviewed History: Yes Social History Home: Single Level Current Living Status: Spouse Entry Into Home: Stairs With Railing PT Steps Into Home: 6 Prior Prior Level of Function SCALE: Activities may be completed with or without assistive devices. 0-Fciyjptxtt-gkygbly completes the activity by him/herself with no assistance from a helper. 5-Set-up or Clean-up Assistance-helper sets up or cleans up; patient completes activity. [place]on assists only prior to or following the activity. 4-Supervision or Touching Assistance-helper provides verbal cues and/or touching/steadying and/or contact guard assistance as patient completes activity. Assistance may be provided throughout the activity or intermittently. 3-Partial/Moderate Assistance-helper does LESS THAN HALF the effort. [place]on lifts, holds or supports trunk or limbs, but provides less than half the effort. 2-Substantial/Maximal Assistance-helper does MORE THAN HALF the effort. [place] lifts or holds trunk or limbs and provides more than half the effort. 6-Isjxgllmy-debcrv does ALL the effort. Patient does none of the effort to complete the activity. Or, the assistance of 2 or more helpers is required for the patient to complete the activity. If activity was not attempted, code reason: 7-Patient Refused. 9-Not Applicable-not attempted and the patient did not perform the activity before the current illness, exacerbation or injury. 10-Not Attempted due to Environmental Limitations-(lack of equipment, weather restraints, etc.). 88-Not Attempted due to Medical Conditions or Safety Concerns. Bed Mobility: 6 Transfers (B,C,W/C): 6 Gait: 6 Stairs: 6 Indoor Mobility (Ambulation): Independent Stairs: Independent Prior Devices Use: None PT Evaluation-Current Subjective Patient lying supine in bed upon PT arrival, agreeable to treatment. Patient rates pain at 0/10 currently. Objective Patient Orientation: Person, Place, Time, Situation Attachments: IV ROM/Strength ROM Lower Extremities WFLs BLEs all planes Strength Lower Extremities 5/5 BLEs all planes Sensory Vision: Functional Hearing: Functional Sensation Right Lower Extremit: Intact Sensation Left Lower Extremity: Intact Transfers Roll Left to Right (QC): 6 Sit to Lying (QC): 6 Lying to Sitting/Side of Bed(Q: 6 Sit to Stand (QC): 6 Chair/Bdt-bh-Gduon Xfer(QC): 6 Gait Does the Patient Walk?: Yes Mode of Locomotion: Walk Anticipated Mode of Locomotion: Walk Walk 10 feet (QC): 6 Walk 50 ft with 2 Turns(QC): 6 Walk 150 ft (QC): 6 Distance: 400' Gait Assistive Device: None Stairs #of Steps: 10 1 Step (curb) (QC): 6 4 Steps (QC): 6 Balance Sitting Static: Normal Sitting Dynamic: Normal Standing Static: Good Standing Dynamic: Good Assessment/Needs Patient at baseline. No further need for PT at this time. Rehab Potential: Good PT Plan Treatment/Plan Treatment Plan: Discontinue PT Treatment Duration: May 24, 2023 Frequency: Time Time In: 1115 Time Out: 1133 DATE: May 23, 2023 Total Billed Treatment Time: 18 Total Billed Treatment Visit, NAIMA CRAWFORD PT May 23, 2023 11:48
--- NOTE | 2023-05-23 15:25 | Progress Note - Cardiology ---
Cardiology SOAP Progress Note Subjective: No cp or palp or syncope No shortness of breath at rest No n/v/d No focal weakness Gen weakness is better Objective: I&O/Vital Signs 05/23/23 05/23/23 05/23/23 05/23/23 04:00 04:00 04:00 05:00 Temp 36.6 Pulse 56 55 Resp 35 11 B/P (MAP) 141/88 (114) 167/92 (126) Pulse Ox 97 96 98 O2 Delivery Room Air Room Air Room Air 05/23/23 05/23/23 05/23/23 05/23/23 06:00 07:00 07:18 08:00 Pulse 56 49 55 60 Resp 8 10 11 B/P (MAP) 165/99 (126) 152/88 (109) 138/80 (99) Pulse Ox 98 95 97 O2 Delivery Room Air Room Air Room Air 05/23/23 05/23/23 05/23/23 05/23/23 08:00 09:00 10:00 11:00 Pulse 57 56 54 Resp 12 11 14 B/P (MAP) 167/100 (122) 142/92 (109) 147/91 (109) Pulse Ox 96 97 97 96 O2 Delivery Room Air Room Air Room Air Room Air 05/23/23 05/23/23 05/23/23 05/23/23 12:00 12:21 13:00 13:13 Temp 36.9 Pulse 57 58 76 Resp 15 23 B/P (MAP) 140/85 (103) 148/90 (109) Pulse Ox 96 96 97 O2 Delivery Room Air Room Air 05/23/23 05/23/23 14:42 15:00 Pulse 54 54 Resp 22 21 B/P (MAP) 136/92 (107) 150/85 (106) Pulse Ox 96 96 O2 Delivery Room Air Room Air 05/23/23 00:00 Intake Total 900 ml Output Total 2050 ml Balance -1150 ml Constitutional: AAO x 3, well-developed, well-nourished Respiratory: No accessory muscle use; chest expansion is symmetric, chest is bilaterally symmetric, other (fair to good, bilateral air entry) Cardiovascular: regular rate-rhythm, S1 and S2, systolic murmur (soft ODALIS at card base) Gastrointestional: No tender; soft; No guarding, No rebound; audible bowel soun ds Extremities: No clubbing, No cyanosis, No significant edema Neurologic/Psychiatric: oriented x 3, other (moves all limbs equally) Skin: No rash on exposed areas, No ulcerations on exposed areas Results/Procedures: Labs Laboratory Tests 05/23/23 04:18: White Blood Count 5.3, Red Blood Count 3.60L, Hemoglobin 11.0L, Hematocrit 32L, Mean Corpuscular Volume 90, Mean Corpuscular Hemoglobin 31, Mean Corpuscular Hemoglobin Concent 34, Red Cell Distribution Width 15.0H, Platelet Count 104L, Mean Platelet Volume 10.3, Immature Granulocyte % (Auto) 0, Neutrophils (%) (Auto) 59, Lymphocytes (%) (Auto) 31, Monocytes (%) (Auto) 7, Eosinophils (%) (Auto) 2, Basophils (%) (Auto) 2, Neutrophils # (Auto) 3.1, Lymphocytes # (Auto) 1.7, Monocytes # (Auto) 0.4, Eosinophils # (Auto) 0.1, Basophils # (Auto) 0.1, Immature Granulocyte # (Auto) 0.0, Percent Immature Platelet Fraction 2.2, Sodium Level 139, Potassium Level 3.7, Chloride Level 113H, Carbon Dioxide Level 18L, Anion Gap 8, Blood Urea Nitrogen 18, Creatinine 2.04H, Estimat Glomerular Filtration Rate 34, BUN/Creatinine Ratio 9, Glucose Level 116H, Calcium Level 8.1L, Corrected Calcium 8.7, Phosphorus Level 2.9, Magnesium Level 1.8, Total Bilirubin 0.7, Aspartate Amino Transf (AST/SGOT) 43H, Alanine Aminotransferase (ALT/SGPT) 23, Alkaline Phosphatase 108, Total Protein 5.7L, Albumin 3.3 Microbiology 05/22/23 MRSA Screen - Final, Complete MRSA not isolated Laboratory Tests 05/22/23 04:55 05/23/23 04:18 A/P: Assessment: Acute/recent NSTEMI (Type 1) CKD - 4 - Cr 1.9 on 08/18/09 and 2.3 on 05/22/23 CAD, mild to moderate on card cath of 2009 Chronic pain due to rheumatoid arthritis and gout Severe hypertension - improved Plan: * I have again discussed treatment options with him in detail. Recommended cath (albeit with [id number] risk, given CKD-4). He again states he understands but again wishes to be managed conservatively * Continue bb, statin, DAPT * Continue ccb for better bp control * Continue iv fluids to maintain/improve renal function - renal function has improved * Monitor labs * Increase ambulation * Transfer to Step Down * Probable discharge tomorrow Clinical Quality Measures AMI/AHF: ASA po Prior to arrival: Yes ((2) 81 MG PO) FABIAN BROWNE MD FACP [facility] May 23, 2023 15:25
[2023-05-23 16:00] VITALS: BP 164/93
[2023-05-23 17:00] VITALS: BP 149/92
[2023-05-23 20:00] VITALS: BP 160/95
[2023-05-23] MEDS: MELATONIN 3 MG TABLET PO PRN (20:26)
[2023-05-23 22:00] VITALS: BP 143/92
[2023-05-24] VITALS: BP 154/89
[2023-05-24 04:00] VITALS: BP 166/91
[2023-05-24] MEDS: cloNIDine 0.1 MG TABLET PO PRN (04:37)
[2023-05-24] MEDS: oxyCODONE IMMEDIATE RELEASE 5 MG TABLET PO PRN (04:38)
[2023-05-24 04:56] LABS: MEAN CORPUSCULAR HGB CONC 34 g/dL (32-36)
[2023-05-24 04:58] LABS: BASOPHILS # (AUTO) 0.1 10^3/uL (0.0-0.1); BASOPHILS % (AUTO) 1 % (0-10); EOSINOPHILS # (AUTO) 0.1 10^3/uL (0.0-0.3); EOSINOPHILS % (AUTO) 2 % (0-10); HEMATOCRIT 34 % (40-54); HEMOGLOBIN 11.6 g/dL (13.3-17.7); LYMPHOCYTES # (AUTO) 1.8 10^3/uL (1.0-4.0); LYMPHOCYTES % (AUTO) 34 % (12-44); MEAN CORPUSCULAR HEMOGLOBIN 31 pg (25-34); MEAN CORPUSCULAR VOLUME 90 fL (80-99); MEAN PLATELET VOLUME 10.6 fL (9.0-12.2); MONOCYTES # (AUTO) 0.3 10^3/uL (0.0-1.0); MONOCYTES % (AUTO) 6 % (0-12); NEUTROPHILS # (AUTO) 2.9 10^3/uL (1.8-7.8); NEUTROPHILS % (AUTO) 56 % (42-75); PLATELET COUNT 105 10^3/uL (130-400); WHITE BLOOD COUNT 5.2 10^3/uL (4.3-11.0)
[2023-05-24 05:09] LABS: ALBUMIN 3.7 GM/DL (3.2-4.5)
[2023-05-24 05:11] LABS: CALCIUM 8.4 MG/DL (8.5-10.1)
[2023-05-24 05:12] LABS: TOTAL PROTEIN 6.3 GM/DL (6.4-8.2)
[2023-05-24 05:14] LABS: BILIRUBIN,TOTAL 0.7 MG/DL (0.1-1.0)
[2023-05-24 05:15] LABS: CREATININE SERUM 2.28 MG/DL (0.60-1.30)
[2023-05-24] MEDS: ENOXAPARIN 80 MG/0.8 ML SYRINGE SC SCH (06:07)
[2023-05-24] MEDS: NITROGLYCERIN 2% OINT 1 GM UNIT DOSE PACKET TOP SCH ×2 (06:07→12:00)
[2023-05-24 08:00] VITALS: BP 154/93
[2023-05-24] MEDS: ASPIRIN enteric coated 81MG TABLET PO SCH (09:29)
[2023-05-24] MEDS: CLOPIDOGREL 75 MG TABLET PO SCH (09:29)
[2023-05-24] MEDS: amLODIPine 10 MG TABLET PO SCH (09:29)
[2023-05-24] MEDS: SENNOSIDES 8.6 MG TABLET PO SCH (09:31)
[2023-05-24] MEDS: DOCUSATE SODIUM 100 MG CAPSULE PO SCH (09:31)
--- NOTE | 2023-05-24 09:45 | Progress Note - Cardiology ---
Cardiology SOAP Progress Note Subjective: Sitting up in bed Spouse at the bedside States he feels well and wants to go home No c/o CP, SOB, palpitations Objective: I&O/Vital Signs 05/23/23 05/24/23 05/24/23 05/24/23 22:00 00:00 00:14 01:00 Temp 36.2 Pulse 59 52 52 Resp 29 17 B/P (MAP) 143/92 (96) 154/89 (121) Pulse Ox 97 97 O2 Delivery Room Air Room Air 05/24/23 05/24/23 05/24/23 05/24/23 04:00 04:00 07:19 08:00 Temp 36.5 36.1 Pulse 80 51 Resp 18 B/P (MAP) 166/91 (116) Pulse Ox 100 O2 Delivery Room Air 05/24/23 05/24/23 08:00 08:00 Pulse 52 Resp 18 B/P (MAP) 154/93 (113) Pulse Ox 96 99 O2 Delivery Room Air Room Air 05/24/23 00:00 Intake Total 1285 ml Output Total 800 ml Balance 485 ml Constitutional: AAO x 3, well-developed, well-nourished Respiratory: No accessory muscle use; chest expansion is symmetric, chest is bilaterally symmetric, lungs clear to auscultation Cardiovascular: regular rate-rhythm, S1 and S2, systolic murmur (soft ODALIS at ca rd base) Gastrointestional: No tender; soft; No guarding, No rebound; audible bowel sounds Extremities: No clubbing, No cyanosis, No significant edema Neurologic/Psychiatric: oriented x 3, other (moves all limbs equally) Skin: No rash on exposed areas, No ulcerations on exposed areas Results/Procedures: Labs Laboratory Tests 05/24/23 04:44: White Blood Count 5.2, Red Blood Count 3.78L, Hemoglobin 11.6L, Hematocrit 34L, Mean Corpuscular Volume 90, Mean Corpuscular Hemoglobin 31, Mean Corpuscular Hemoglobin Concent 34, Red Cell Distribution Width 14.6H, Platelet Count 105L, Mean Platelet Volume 10.6, Immature Granulocyte % (Auto) 0, Neutrophils (%) (Auto) 56, Lymphocytes (%) (Auto) 34, Monocytes (%) (Auto) 6, Eosinophils (%) (Auto) 2, Basophils (%) (Auto) 1, Neutrophils # (Auto) 2.9, Lymphocytes # (Auto) 1.8, Monocytes # (Auto) 0.3, Eosinophils # (Auto) 0.1, Basophils # (Auto) 0.1, Immature Granulocyte # (Auto) 0.0, Percent Immature Platelet Fraction 2.7, Sodium Level 138, Potassium Level 4.0, Chloride Level 110H, Carbon Dioxide Level 16L, Anion Gap 12, Blood Urea Nitrogen 21H, Creatinine 2.28H, Estimat Glomerular Filtration Rate 30, BUN/Creatinine Ratio 9, Glucose Level 120H, Calcium Level 8.4L, Corrected Calcium 8.6, Total Bilirubin 0.7, Aspartate Amino Transf (AST/SGOT) 40H, Alanine Aminotransferase (ALT/SGPT) 29, Alkaline Phosphatase 126, Total Protein 6.3L, Albumin 3.7 Microbiology 05/22/23 MRSA Screen - Final, Complete MRSA not isolated Laboratory Tests 05/23/23 04:18 05/24/23 04:44 A/P: Assessment: Acute/recent NSTEMI (Type 1) - declines cardiac cath - desires conservative tx Mild thrombocytopenia - undetermined etiology (improved from lab of April 2023) CKD - 4 - Cr 1.9 on 08/18/09 and 2.3 on 05/22/23 CAD, mild to moderate on card cath of 2009 Chronic pain due to rheumatoid arthritis and gout Severe hypertension - improved Plan: * I have again discussed treatment options with him in detail. Recommended cath (albeit with [id number] risk, given CKD-4). He again states he understands but again wishes to be managed conservatively * Continue bb, statin, DAPT * Continue ccb for better bp control * Renal function stable * Thrombocytopenia (seen on lab from Apr 2023) * advise consideration of hematology consult * stop Lovenox * Monitor labs * Has been ambulating in the halls without difficulty Clinical Quality Measures AMI/AHF: ASA po Prior to arrival: Yes ((2) 81 MG PO) BABAR TAVAREZ May 24, 2023 09:45
--- NOTE | 2023-05-24 11:30 | Discharge Summary ---
GENO BASSETT MD, RESIDENT 05/24/23 1130: Discharge Summary Hospital Course Problems/Diagnosis: (1) Elevated troponin Status: Acute Assessment & Plan: Cardiology consulted, appreciate recommendations. Received asa, plavix, beta rodrigo and enoxaparin 1 mg/kg in ER. Patient opted for conservative management of his chest pain and did not want cardiac catheterization. Chest pain eventually resolved while in the hospital and thus patient will be discharged home with close follow-up with cardiology. (2) Chest pain Status: Resolved Resolution Date/Time: 05/23/23 @ 12:03 Assessment & Plan: Suspect possible NSTEMI given elevated troponin, appreciate Cardiology recommendations. Chest pain resolved at this time. (3) Hypertensive emergency Status: Acute Assessment & Plan: Clonidine increased to 0.2 mg daily. Cardiology consulted, appreciate recommendations. (4) Chronic renal disease Status: Chronic Assessment & Plan: Has not been followed by Nephrology, reviewed clinic chart and he was referred at his hospital follow up visit 05/17/[address] Mckeon to Dr. Zahra Carpenter and labs and renal US ordered. Cr appears to be near his recent baseline. Qualifiers: Qualified Codes: N18.4 - Chronic kidney disease, stage 4 (severe) (5) Rheumatoid arthritis Status: Chronic Assessment & Plan: No Rheumatology records available, reviewed clinic visit notes and descriptions of diagnosis and treatment were unclear. Labs were drawn 05/17, are still pending outpatient. Reportedly off of opiate pain medications for quite some time. Per outpatient clinic notes, discussion was had regarding Suboxone as a safer/recommended option for him and saliva testing done as he reported being unable to leave a urine sample. Results are pending. Qualifiers: Qualified Codes: M06.9 - Rheumatoid arthritis, unspecified (6) Gout Status: Chronic Assessment & Plan: No acute issues noted. (7) DVT prophylaxis Status: Acute Assessment & Plan: On treatment dose enoxaparin Hospital Course Date of Admission: May 22, 2023 at 08:47 Admission Diagnosis : Family Physician/Provider: Isatu,Local Physician Date of Discharge: 05/24/23 Discharge Diagnosis: NSTEMI Hospital Course: Patient is a 72-year-old male with a past medical history of rheumatoid arthritis, history of cardiac cath, hypertension, CKD who presented to the ED with chest pain that was persistent and continued to worsen at home. In the ED, EKG was unremarkable however troponin was elevated to 15. Thus cardiology was consulted for further management. Cardiology had discussed need for cardiac ca theterization to evaluate patient's chest pain further however patient declined and opted for conservative management. In addition we are managing his blood pressures as they had been elevated meeting hypertensive urgency criteria. While in the hospital, patient's chest pain eventually resolved and he was monitored for with no recurrence of his chest pain. Will discharge patient home with medications per cardiology's recommendations including statin, calcium channel rodrigo, beta-rodrigo, aspirin and plavix. Labs and Pending Lab Test: Laboratory Tests 05/24/23 04:44: White Blood Count 5.2, Red Blood Count 3.78L, Hemoglobin 11.6L, Hematocrit 34L, Mean Corpuscular Volume 90, Mean Corpuscular Hemoglobin 31, Mean Corpuscular Hemoglobin Concent 34, Red Cell Distribution Width 14.6H, Platelet Count 105L, Mean Platelet Volume 10.6, Immature Granulocyte % (Auto) 0, Neutrophils (%) (Auto) 56, Lymphocytes (%) (Auto) 34, Monocytes (%) (Auto) 6, Eosinophils (%) (Auto) 2, Basophils (%) (Auto) 1, Neutrophils # (Auto) 2.9, Lymphocytes # (Auto) 1.8, Monocytes # (Auto) 0.3, Eosinophils # (Auto) 0.1, Basophils # (Auto) 0.1, Immature Granulocyte # (Auto) 0.0, Percent Immature Platelet Fraction 2.7, Sodium Level 138, Potassium Level 4.0, Chloride Level 110H, Carbon Dioxide Level 16L, Anion Gap 12, Blood Urea Nitrogen 21H, Creatinine 2.28H, Estimat Glomerular Filtration Rate 30, BUN/Creatinine Ratio 9, Glucose Level 120H, Calcium Level 8.4L, Corrected Calcium 8.6, Total Bilirubin 0.7, Aspartate Amino Transf (AST/SGOT) 40H, Alanine Aminotransferase (ALT/SGPT) 29, Alkaline Phosphatase 126, Total Protein 6.3L, Albumin 3.7 Microbiology 05/22/23 MRSA Screen - Final, Complete MRSA not isolated Home Meds Active Reported B Complex (Vitamin B Complex) 1 Each Tablet 1 Each PO DAILY Centrum Adults Tablet (Multivitamin/Iron/Folic Acid) 18 Mg Iron-400 Mcg Tablet 1 Each PO DAILY Tylenol Extra Strength (Acetaminophen) 500 Mg Tablet 1,000 Mg PO Q8H PRN Fluoxetine HCl 10 Mg Tablet 10 Mg PO 1300 Verapamil HCl 80 Mg Tablet 80 Mg PO BID Allopurinol 300 Mg Tablet 300 Mg PO 1300 Clonidine HCl 0.1 Mg Tablet 0.1 Mg PO BID Hydroxyzine HCl 25 Mg Tablet 25 Mg PO TID PRN Assessment/Pt DC Instructions Please see electronic discharge instructions given to patient. Discharge Diet: No Restrictions Activity as Tolerated: Yes Discharge Physical Examination Allergies: Coded Allergies: NKANo Known Allergies (Unverified Allergy, Mild, 06/10/09) General Appearance: No Apparent Distress, WD/WN HEENT: PERRL/EOMI Respiratory: Chest Non Tender, Lungs Clear, Normal Breath Sounds, No Accessory Muscle Use, No Respiratory Distress Cardiovascular: Regular Rate, Rhythm, No Edema, No Murmur Gastrointestinal: Normal Bowel Sounds, Non Tender, Soft Extremity: Non Tender, No Pedal Edema Skin: Normal Color, Warm/Dry Neurologic/Psychiatric: Alert, Oriented x3 Clinical Quality Measures AMI/AHF: ASA po Prior to arrival: Yes ((2) 81 MG PO) ALEXA LEAHY MD 05/24/231816: Discharge Summary Discharge Physical Examination Allergies: Coded Allergies: NKANo Known Allergies (Unverified Allergy, Mild, 06/10/09) Supervisory-Addendum Brief Supervisory Addendum I personally performed the tam portions of the visit, discussed case with resident and concur with resident documentation of history, physical exam, as sessment and treatment plan unless otherwise noted. GENO BASSETT MD, RESIDENT May 24, 2023 11:30 ALEXA LEAHY MD May 24, 2023 18:17
[2023-05-24 11:38] VITALS: BP 163/100
[2023-05-24 12:00] VITALS: BP 150/92
[2023-05-24] MEDS ORDERED: AMLO-251 PO (15:20)
[2023-05-24] MEDS ORDERED: MTP100TCR PO (15:20)
[2023-05-24 16:29] VITALS: BP 175/95
[2023-05-24] MEDS ORDERED: CLOP-31 PO (18:11)
[2023-05-24] MEDS ORDERED: ASPI-999 PO (18:11)
[2023-05-24] MEDS ORDERED: ATOR40TA70 PO (18:11)
--- NOTE | 2023-05-24 23:04 | Progress Note - Cardiology ---
Cardiology SOAP Progress Note Subjective: No cp or palp or syncope or shortness of breath No n/v/d No focal weakness No gen weakness Insists on going home Objective: I&O/Vital Signs 05/24/23 05/24/23 05/24/23 05/24/23 11:38 12:00 12:58 16:29 Temp 36.7 36.4 Pulse 56 53 53 63 Resp 14 22 12 B/P (MAP) 163/100 (121) 150/92 (111) 175/95 (121) Pulse Ox 97 97 99 O2 Delivery Room Air Room Air Room Air 05/24/23 00:00 Intake Total 1285 ml Output Total 800 ml Balance 485 ml Constitutional: AAO x 3, well-developed, well-nourished Respiratory: No accessory muscle use; chest expansion is symmetric, chest is bilaterally symmetric, lungs clear to auscultation Cardiovascular: regular rate-rhythm, S1 and S2, systolic murmur (soft ODALIS at ca rd base) Gastrointestional: No tender; soft; No guarding, No rebound; audible bowel sounds Extremities: No clubbing, No cyanosis, No significant edema Neurologic/Psychiatric: oriented x 3, other (moves all limbs equally) Skin: No rash on exposed areas, No ulcerations on exposed areas Results/Procedures: Labs Laboratory Tests 05/24/23 04:44: White Blood Count 5.2, Red Blood Count 3.78L, Hemoglobin 11.6L, Hematocrit 34L, Mean Corpuscular Volume 90, Mean Corpuscular Hemoglobin 31, Mean Corpuscular Hemoglobin Concent 34, Red Cell Distribution Width 14.6H, Platelet Count 105L, Mean Platelet Volume 10.6, Immature Granulocyte % (Auto) 0, Neutrophils (%) (Auto) 56, Lymphocytes (%) (Auto) 34, Monocytes (%) (Auto) 6, Eosinophils (%) (Auto) 2, Basophils (%) (Auto) 1, Neutrophils # (Auto) 2.9, Lymphocytes # (Auto) 1.8, Monocytes # (Auto) 0.3, Eosinophils # (Auto) 0.1, Basophils # (Auto) 0.1, Immature Granulocyte # (Auto) 0.0, Percent Immature Platelet Fraction 2.7, Sodium Level 138, Potassium Level 4.0, Chloride Level 110H, Carbon Dioxide Level 16L, Anion Gap 12, Blood Urea Nitrogen 21H, Creatinine 2.28H, Estimat Glomerular Filtration Rate 30, BUN/Creatinine Ratio 9, Glucose Level 120H, Calcium Level 8.4L, Corrected Calcium 8.6, Total Bilirubin 0.7, Aspartate Amino Transf (AST/SGOT) 40H, Alanine Aminotransferase (ALT/SGPT) 29, Alkaline Phosphatase 126, Total Protein 6.3L, Albumin 3.7 Microbiology 05/22/23 MRSA Screen - Final, Complete MRSA not isolated A/P: Assessment: Acute/recent NSTEMI (Type 1) - declines cardiac cath - desires conservative tx Mild thrombocytopenia - undetermined etiology (improved from lab of April 2023) CKD - 4 - Cr 1.9 on 08/18/09 and 2.3 on 05/22/23 CAD, mild to moderate on card cath of 2009 Chronic pain due to rheumatoid arthritis and gout Severe hypertension - improved Plan: * I have again discussed treatment options with him in detail. Recommended cath (albeit with [id number] risk, given CKD-4). He again states he understands but again wishes to be managed conservatively * Continue bb, statin, DAPT * Continue ccb for better bp control * Renal function stable * Thrombocytopenia (seen on lab from Apr 2023) * Medical service managing * stop Lovenox * Monitor labs * Has been ambulating in the halls without difficulty * Ok for d/c from cardiac standpoint * Outpt cardiac f/u advised Clinical Quality Measures AMI/AHF: ASA po Prior to arrival: Yes ((2) 81 MG PO) FABIAN BROWNE MD FACP FAC CCDS May 24, 2023 23:04
== END 2023-05-24 18:40 | disposition home or self-care (01) | DRG 281 ==
LOC: EDUNIT# 04:40 → ER 04:42 → ICU 08:47 → CSD 05-23 17:00
PROVIDERS: ADMIT Internal Medicine; ATTEND Family Medicine
DX: I21.4 Non-ST elevation (NSTEMI) myocardial infarction (principal); I16.1 Hypertensive emergency; N18.4 Chronic kidney disease, stage 4 (severe); I10 Essential (primary) hypertension; I12.9 Hypertensive chronic kidney disease with stage 1 through stage 4 chronic kidney disease, or unspecified chronic kidney disease; M06.9 Rheumatoid arthritis, unspecified; M19.042 Primary osteoarthritis, left hand; M19.041 Primary osteoarthritis, right hand; M10.9 Gout, unspecified; J45.909 Unspecified asthma, uncomplicated; F41.9 Anxiety disorder, unspecified; I25.10 Atherosclerotic heart disease of native coronary artery without angina pectoris; G89.29 Other chronic pain; F12.90 Cannabis use, unspecified, uncomplicated; D69.6 Thrombocytopenia, unspecified; Z79.82 Long term (current) use of aspirin; Z79.899 Other long term (current) drug therapy; Z79.891 Long term (current) use of opiate analgesic
CPT/HCPCS: 36415; 71045; 80053; 80061; 80306; 80320; 80329; 81000; 82150; 82550; 82553; 83690; 83735; 83874; 83880; 84100; 84484; 85025; 85379; 85610; 85730; 87081; 93005; 93041; 93306; 96361; 96372; 96374; 96375